=== PATIENT | male | born 1950 | race American Indian/Alaskan Native ===

== ENCOUNTER 2016-07-07 12:35 | Inpatient (IN) | payer MEDICARE, MEDICAID ==
[2016-07-07] MEDS ORDERED: Albuterol 0.5% Inhal Sol (5 mg/ ml) 20 ml IH STA ×2 (12:45→13:15)
--- NOTE | 2016-07-07 12:47 | ED PDOC ---
Arrival/HPI - General Chief Complaint: Respiratory Distress Time Seen by Provider: 07/07/16 12:37 Historian: Patient - History of Present Illness Narrative History of Present Illness (Text): 07/07/16 12:45 66 year old male sent from retirement with shortness of breath since last night after missing dialysis two days ago. Patient does not provide further history, states that he "just didn't want to go " for his last scheduled dialysis. Denies suicidal or homicidal ideation. Denies headache. Denies fever. Denies ACUTE visual symptoms. Denies chest pain. Denies chills or abodminal pain. NO ACUTE RASH or redness reported. PMD: Dr. Kapoor 07/07/16 17:02 Time/Duration: 24 hours Symptom Onset: Gradual Symptom Course: Unchanged Modifying Factors (Text): None Associated Symptoms (Text): None Past Medical History - Provider Review Nursing Documentation Reviewed: Yes - Infectious Disease Hx of Infectious Diseases: None - Tetanus Immunization Tetanus Immunization: Unknown - Cardiac Hx Cardiac Disorders: Yes Hx Hypertension: Yes Other/Comment: PVD - Pulmonary Hx Respiratory Disorders: Yes Hx Bronchitis: Yes Hx Pneumonia: Yes - Neurological Hx Paralysis: No - HEENT Hx HEENT Disorder: Yes Hx Blind: Yes (left eye blind) Hx Cataracts: Yes Hx Glaucoma: Yes Other/Comment: r eye blurrey vision after every dialysis - Renal Hx Dialysis: Yes Date of Last Dialysis Treatment: 07/03/16 Hx Renal Failure: Yes - Endocrine/Metabolic Hx Diabetes Mellitus Type 2: Yes - Hematological/Oncological Hx Blood Transfusions: No Hx Blood Transfusion Reaction: No - Integumentary Hx Dermatological Disorder: Yes Other/Comment: Bilateral dry feet, with right great toe amputation and right diabetic ulcer, dry skin ble and discolorations - Musculoskeletal/Rheumatological Hx Musculoskeletal Disorders: Yes - Gastrointestinal Hx Gastrointestinal Disorders: No - Genitourinary/Gynecological Hx Genitourinary Disorders: Yes - Psychiatric Hx Emotional Abuse: No Hx Physical Abuse: No Hx Substance Use: No - Surgical History Hx Amputation: Yes (r great toe) Other/Comment: r leg bypass [facility], r leg angio unssucessful 08/05/14, pancho, colonoscopy, right av fistula - Anesthesia Hx Anesthesia Reactions: No Hx Malignant Hyperthermia: No - Suicidal Assessment Feels Threatened In Home Enviroment: No Family/Social History - Physician Review Nursing Documentation Reviewed: Yes Family/Social History: Unknown Family HX Smoking Status: Never Smoked Hx Alcohol Use: No Hx Substance Use: No Hx Substance Use Treatment: No Allergies/Home Meds Allergies/Adverse Reactions: Allergies No Known Allergies Allergy (Verified 07/07/16 16:45) Home Medications: Home Meds Medication Instructions Recorded Confirmed Aspirin [Adult Low Dose Aspirin EC] 81 mg PO DAILY 07/23/15 06/02/16 Atorvastatin [Lipitor] 20 mg PO HS 07/23/15 07/07/16 Docusate Sodium [Col-Rite] 100 mg PO BID 07/23/15 07/07/16 Sevelamer [Renagel] 800 mg PO DAILY 02/18/16 07/07/16 Acetaminophen [Tylenol 325mg tab] 2 tab PO Q4 PRN 07/07/16 07/07/16 DiphenhydrAMINE [Benadryl] 25 mg PO DAILY PRN 07/07/16 07/07/16 Dorzolamide 2% [Trusopt] 1 drop OD BID 07/07/16 07/07/16 Insulin Human Regular [HumuLIN R] See Protocol SC BID 07/07/16 07/07/16 Lactulose [Generlac] 30 ml PO Q12 PRN 07/07/16 07/07/16 Metoprolol Succinate [Metoprolol 25 ng PO BID 07/07/16 07/07/16 Succinate] Pilocarpine HCl [Isopto Carpine] 1 drop OD QID 07/07/16 07/07/16 amLODIPine [Norvasc] 10 mg PO DAILY 07/07/16 07/07/16 oxyCODONE/Acetaminophen [Percocet 1 tab PO Q8 PRN 07/07/16 07/07/16 5/325 mg Tab] Review of Systems - Review of Systems Constitutional: Fatigue. absent: Fevers Eyes: Vision Changes (chronic history of glaucoma) Respiratory: SOB Cardiovascular: GUTIERREZ. absent: Chest Pain, Calf Pain Gastrointestinal: Appetite Changes. absent: Abdominal Pain Musculoskeletal: Myalgias Skin: Other (prior changes to toe/feet). absent: Rash Neurological: absent: Headache, Dizziness, Focal Weakness Psychiatric: absent: Depression Physical Exam - Physical Exam Narrative Physical Exam (Text): Head: Atraumatic. Normocephalic. Eyes: Visual acuity deficits at baseline. Glaucomatous changes. No pain with eye movements. ENT: Mucous membranes are moist and intact. No facial edema or erythema. Neck: Supple. No lympnadenopahty, positive JVD. Cardiovascular: Tachycardic with systolic murmur. Irregular rate and rhythm. Pulmonary/Chest: Tachypneic with rales bilaterally. Mild respiratory distress. Abdominal: Soft and nontender with no peritoneal signs. Back: No midline tenderness or erythema. Extremities: Diminished pulses, history of toe osteomyelitis. Skin: Skin is pale. No streaking. Psychiatric: Denies suicidal or homicidal ideation. 07/07/16 16:50 Vital Signs Reviewed: Yes Vital Signs Temp Pulse Resp BP Pulse Ox 07/07/16 15:18 95 H 19 124/57 L 98 07/07/16 15:01 98 H 24 117/67 94 L 07/07/16 14:22 99 H 22 136/70 94 L 07/07/16 13:05 20 89 L 07/07/16 12:49 98.2 F 100 H 22 137/94 H 88 L Temperature: Afebrile Pulse: Irregular Respiratory Rate: Tachypneic Appearance: Positive for: Uncomfortable Pain Distress: Moderate Mental Status: Positive for: Alert and Oriented X 3 Medical Decision Making ED Course and Treatment: Differential Diagnosis included but are not limited to: pulmonary edema, chf, pneumonia, renal failure, electrolyte abnormality Progress Notes: Dr. Rodriguez was contacted prior to patient's arrival by his PMD. Patient requested Dr. Juarez to be notified. Page was placed to Dr. Juarez at 12:45. Patient seen by me immediately upon arrival to ED. He states he has been feeling progressive sob. On exam, he is tachypneic and states that he missed dialysis recently because "I just didn't go". He is afebrile in ED. EKG emergenly obtained. EKG reveals atrial fibrillation with ventricular rate 104 BPM and hyperacute t waves that may be suggestive of hyperkalemia. High dose Albuterol was ordered and emergent consultation with renal was obtained to arrange dialysis to address potential hyperkalemia. BP is stable. Patient is awake and alert. Saturations on oxygen 96%. Chest X-ray: Bioinformatics Support Specialist: Dr. José Luis Meadows IMPRESSION: Right lower lobe infiltrate I suspect CXR also suggestive of possible pulmonary edema. Patient case discussed with Dr. Rodriguez and dialysis arranged for ED. Leukocytosis noted, patient afebrile. Due to exam consistent with fluid overload, did not aggressively hydrate. Blood cultures and iv antibiotics ordered as patient with hx of osteomyelitis although cannot exclude pneumonia. During dialysis, less tachypneic, he remains awake, alert. K elevated, although no hypotension and patient currently being dialyzed. CXR reading and leukoctyosis reviewed with PMD, will culture, consult ID. Will admit to telemetry as patient breathing more comfortably, yet still symptomatic during dialysis. Patient informed of treatment plan. 07/07/16 16:54 - Lab Interpretations Lab Results: 07/07/16 13:51 07/07/16 13:51 Lab Results 07/07/16 13:51: WBC 13.5 H D, RBC 2.83 L, Hgb 8.6 L, Hct 25.4 L, MCV 89.8, MCH 30.4, MCHC 33.9, RDW 14.5, Plt Count 136, MPV 9.2, Gran % 90.6 H, Lymph % (Auto ) 2.7 L, [place] % (Auto) 6.4 H, Eos % (Auto) 0.2 L, Baso % (Auto) 0.1, Gran # 12.20 H, Lymph # 0.4 L, [place] # 0.9 H, Eos # 0.0, Baso # 0.02, PT 11.0, INR 1.02 , APTT 18.7 L, pO2 60 H, VBG pH 7.23 L, VBG pCO2 46.0, VBG HCO3 19.3 L, VBG Total CO2 20.7 L, VBG O2 Sat (Calc) 92.8 H, VBG Base Excess -8.2 L, VBG Potassium 7.0 H*, Glucose 219 H, Lactate 2.4 H, FiO2 21.0, Sodium 137.0, Potassium 7.2 H* D, Chloride 109.0 H, Carbon Dioxide 18 L, Anion Gap 26 H, BUN 103 H, Creatinine 17.0 H*, Est GFR ( Amer) 3, Est GFR (Non-Af Amer) 3, Random Glucose 210 H, Calcium 9.1, Total Bilirubin 1.3, AST 20, ALT < 6 L, Alkaline Phosphatase 82, Lactate Dehydrogenase 638, Total Creatine Kinase 79, Troponin I 0.09 D, NT-Pro-B Natriuret Pep 52075 H, Total Protein 8.1, Albumin 4.3, Globulin 3.8, Albumin/Globulin Ratio 1.1, Venous Blood Potassium 7.0 H* 07/07/16 13:39: POC Glucose (mg/dL) 209 H - RAD Interpretation Radiology Orders: 07/07/16 12:46 CHEST PORTABLE [RAD] Stat Speech Pathology Assistant: Radiologist - EKG Interpretation EKG Interpretation (Text): 07/07/16 16:59 EKG at 12:45 atrial fibrillation with rapid ventricular response, left axis deviation, hyperacute t waves Interpreted by ED Physician: Yes Type: 12 lead EKG Comparison: Com.w/previous EKG - Medication Orders Current Medication Orders: Cefepime HCl (Maxipime 2gm) 100 mls @ 100 mls/hr IVPB STAT STA PRN Reason: Protocol Stop: 07/07/16 17:39 Discontinued Medications Albuterol Sulfate (Albuterol 0.5% Inhal Manju (5 Mg/ Ml) 20 Ml) 5 mg IH ONCE STA Stop: 07/07/16 12:46 Last Admin: 07/07/16 13:04 Dose: 5 MG Albuterol Sulfate (Albuterol 0.5% Inhal Manju (5 Mg/ Ml) 20 Ml) 5 mg IH ONCE STA Stop: 07/07/16 13:16 Last Admin: 07/07/16 13:23 Dose: 5 MG - Scribe Statement The provider has reviewed the documentation as recorded by the Alicia Regalado Provider Scribe Attestation: All medical record entries made by the Alicia were at my direction and personally dictated by me. I have reviewed the chart and agree that the record accurately reflects my personal performance of the history, physical exam, medical decision making, and the department course for this patient. I have also personally directed, reviewed, and agree with the discharge instructions and disposition. Disposition/Present on Arrival - Present on Arrival Any Indicators Present on Arrival: No History of DVT/PE: No History of Uncontrolled Diabetes: No Urinary Catheter: No History of Decub. Ulcer: No History Surgical Site Infection Following: Orthopedic Procedures - Disposition Have Diagnosis and Disposition been Completed?: Yes Diagnosis: Anemia, Pulmonary edema, ESRD (end stage renal disease) on dialysis, PVD ( peripheral vascular disease), Leukocytosis, Atrial fibrillation, Pneumonia Disposition Time: 14:30 Patient Plan: Admission, Telemetry Patient Problems: Current Active Problems Problem Status Diagnosed Atrial fibrillation Acute Leukocytosis Acute Pneumonia Acute Pulmonary edema Acute Sepsis Acute Anemia Chronic ESRD (end stage renal disease) on dialysis Chronic PVD (peripheral vascular disease) Chronic
--- NOTE | 2016-07-07 13:25 | RAD ---
HISTORY: sob COMPARISON: 06/06/2016 FINDINGS: LUNGS: There is an infiltrate in the right lower lobe consistent with pneumonia PLEURA: No significant pleural effusion identified, no pneumothorax apparent. CARDIOVASCULAR: Normal. OSSEOUS STRUCTURES: No significant abnormalities. VISUALIZED UPPER ABDOMEN: Normal. OTHER FINDINGS: None. IMPRESSION: Right lower lobe infiltrate
[2016-07-07 13:53] LABS: ADD MANUAL DIFF? NO
[2016-07-07 13:58] LABS: VENOUS BLOOD GAS BASE EXCESS -8.2 mmol/L (0.0-2.0); VENOUS BLOOD PH 7.23 (7.32-7.43)
[2016-07-07 13:59] LABS: BASO # 0.02 K/mm3 (0.0-2.0); BASO % 0.1 % (0.0-3.0); EOS % 0.2 % (1.5-5.0); GRAN % 90.6 % (50.0-68.0); HEMATOCRIT 25.4 % (42.0-52.0); LYMPH # 0.4 (1.2-3.4); LYMPH % 2.7 % (22.0-35.0); MEAN CELL VOLUME 89.8 fL (80.0-105.0); MEAN CORPUSCULAR HEMOGLOBIN 30.4 pg (25.0-35.0); MEAN CORPUSCULAR HGB CONC 33.9 g/dl (31.0-37.0); MEAN PLATELET VOLUME 9.2 fl (7.0-11.0); MONO # 0.9 (0.1-0.6); MONO % 6.4 % (1.0-6.0); PLATELET COUNT 136 10^3/uL (120.0-450.0); RED CELL DISTRIBUTION WIDTH 14.5 % (11.5-14.5); WHITE BLOOD COUNT 13.5 10^3/ul (4.5-11.0)
[2016-07-07 14:06] LABS: ALB/GLOB RATIO 1.1 (1.1-1.8); ALKALINE PHOSPHATASE 82 U/L (38-133); AST/SGOT 20 U/L (15-59); BILIRUBIN,TOTAL 1.3 mg/dL (0.2-1.3); BLOOD UREA NITROGEN 103 mg/dL (7-21); CALCIUM 9.1 mg/dL (8.4-10.5); CARBON DIOXIDE 18 mmol/L (21-33); CHLORIDE 102 mmol/L (98-107); GLUCOSE,RANDOM 210 mg/dL (70-110); SODIUM 139 mmol/L (132-148); TOTAL PROTEIN 8.1 g/dL (5.8-8.3)
[2016-07-07 14:12] LABS: GFR AFRICAN-AMERICAN 3
[2016-07-07 14:17] LABS: INR 1.02 (0.93-1.08); PARTIAL THROMBOPLASTIN TIME 18.7 Seconds (23.7-30.8)
[2016-07-07 14:18] LABS: ALT/SGPT < 6 U/L (7-56)
[2016-07-07 14:19] LABS: TROPONIN I 0.09 ng/mL
[2016-07-07 14:30] LABS: POTASSIUM 7.2 mmol/L (3.6-5.0)
[2016-07-07] MEDS ORDERED: Cefepime IV 2 gm in NS 100 ML IVPB STA (16:40)
[2016-07-07 17:48] LABS: VENOUS BLOOD GAS BASE EXCESS 1.2 mmol/L (0.0-2.0); VENOUS BLOOD PH 7.26 (7.32-7.43)
--- NOTE | 2016-07-07 17:51 | CON ---
DATE: 07/07/2016 REASON FOR CONSULTATION: Shortness of breath, hyperkalemia and abnormal EKG. HISTORY OF PRESENTING ILLNESS: A 66-year-old male sent from care home with complaints of shortnes s of breath since last night. The patient reports that he missed his dialysis on Sunday. He did not go for dialysis because of pain in his access arm. He reports that he was having shortness of br eath, nausea and vomiting last night. He also reports some chest tightness. In the Emergency Room, he is found to be tachypneic, in mild respiratory distress. He is also found to have an abnormal EKG with peaked T waves. His blood work shows a hemoglobin of 8.6, WBC count of 13.5 with 90% polys and his potassium was found to be 7.2. Consultation is requested for urgent dialysis. His BNP is found to be 87,200. PAST MEDICAL AND SURGICAL HISTORY: NIDDM, hypertension, ESRD, peripheral vascular disease, amputatio n, nonhealing ulcer, severe anemia, retinal hemorrhage and secondary hyperparathyroidism. FAMILY HISTORY: Noncontributory. SOCIAL HISTORY: Homeless, lives at the [facility], currently in care home. Ex-smoker, no alcohol use a nd no IV drug abuse. ALLERGIES: No known drug allergies. MEDICATIONS IN THE LONG TERM: Included pilocarpine, Trusopt, insulin, Colace, Benadryl, Lipitor, Tylenol, Percocet, Renagel and amlodipine and Toprol-XL 25. REVIEW OF SYSTEMS: As mentioned in history of presenting illness, the rest unremarkable. PHYSICAL EXAMINATION: GENERAL: Elderly male lying in bed in the Emergency Room in moderate respiratory distress. VITAL SIGNS: Blood pressure 136/70, heart rate 99, respiratory rate 24 and temperature 98. HEENT: Normocephalic, atraumatic with positive pallor. No icterus. NECK: Supple, no JVD. LUNGS: Bilateral rhonchi and bilateral basal rales. CARDIAC: S1, S2, regular rate and rhythm, no murmur and no rub. ABDOMEN: Obese, distended, soft, nontender with bowel sounds present. EXTREMITIES: Chronic stasis changes, dressing of both feet. LABORATORY DATA: WBC 13.5, hemoglobin 8.6, hematocrit 25 and platelets 136. Sodium 139, potassium 7 .2, chloride 102, CO2 18, BUN 103, creatinine 17, glucose 210, calcium 9.1, AST 20, ALT less than 6 a nd troponin 0.09. BNP 87,200. Albumin 4.3. VBG: pH 7.23, pO2 60 and pCO2 46. Chest x-ray: Right lower lobe infiltrate. EKG: Peaked T waves. ASSESSMENT AND PLAN: 1. Respiratory distress, shortness of breath and volume overload. 2. Severe life-threatening hyperkalemia. 3. Hypertension. 4. End-stage renal disease. 5. Non-insulin dependent diabetes mellitus. 6. Noncompliance. PLAN: 1. Urgent dialysis with a potassium ____ back, dialyzed for 3-1/2 hours. 2. Repeat potassium after dialysis. 3. May need dialysis again tomorrow. 4. Pneumonia? 5. Empiric antibiotics. Thank you for the courtesy of this consultation. We will follow this patient with you. Crystal Rodriguez MD cc: [phone] TT: 07/07/2016 17:50:57 Confirmation # [id number] Dictation # [id number] sn
--- NOTE | 2016-07-07 18:18 | CARD ---
APPROVED REPORT EKG Measurement Heart [id number] <Conclusion> Atrial fibrillation with rapid ventricular response Left axis deviation Nonspecific intraventricular block T wave abnormality, consider lateral ischemia or digitalis effect Abnormal ECG
[2016-07-07] MEDS ORDERED: Oxycodone/Acetaminophen 5/325 mg Tab PO PRN (22:25)
[2016-07-07 23:16] VITALS: BMI 26.8
[2016-07-07] MEDS ORDERED: Pneumococcal 23-Valent Vaccine IM ONE (23:16)
[2016-07-07] MEDS ORDERED: Influenza Vaccine 45 MCG/0.5 ml IM ONE (23:16)
[2016-07-07] MEDS: Dorzolamide 2% Opht Sol 10ml OD SCH (23:25)
[2016-07-08] MEDS: Meropenem 500 MG in Sodium Chloride 0.9% 100 ML IVPB SCH ×2 (00:22→21:51)
[2016-07-08] MEDS: Insulin Reg-MEDIUM-Coverage SC SCH ×4 (07:26→21:52)
[2016-07-08 07:27] LABS: MEAN CELL VOLUME 87.6 fL (80.0-105.0); MEAN CORPUSCULAR HGB CONC 34.3 g/dl (31.0-37.0); MEAN PLATELET VOLUME 9.2 fl (7.0-11.0); RED CELL DISTRIBUTION WIDTH 14.4 % (11.5-14.5)
[2016-07-08 07:40] LABS: ALB/GLOB RATIO 1.1 (1.1-1.8); BILIRUBIN,TOTAL 0.6 mg/dL (0.2-1.3); CALCIUM 8.6 mg/dL (8.4-10.5); POTASSIUM 5.1 mmol/L (3.6-5.0)
[2016-07-08 07:45] LABS: HEMATOCRIT 20.4 % (42.0-52.0)
--- NOTE | 2016-07-08 09:52 | PN ---
DATE: 07/08/2016 SUBJECTIVE: The patient is currently seen on telemetry. He appears to be comfortable. He is noted to be severely anemic. Hemoglobin today is down to 7.0. The patient only received 2 dialysis treatm ents this week, and he will receive an extra treatment today to make up further 3 treatments that he receives on a weekly basis. He will be transfused on dialysis. He denies any bleeding. The patient , otherwise, feels comfortable. He denies any shortness of breath. MEDICATIONS: Medication list reviewed. The patient is currently on eyedrops, Colace, doxycycline, E cotrin, insulin, Lipitor, meropenem, Norvasc, Percocet, Renagel, Toprol. OBJECTIVE: INTAKE AND OUTPUT: Intake 240, output not charted. VITAL SIGNS: Blood pressure 125/58, respiratory rate 20, pulse 82, temperature 98.9. HEENT: Shows him to be normocephalic, atraumatic. Conjunctivae are pale. Sclerae are nonicteric. The patient is blind in his left eye and legally blind in his right eye. NECK: Supple. No neck-vein distention. CHEST: Clear to auscultation and percussion. Slight decreased breath sounds at the right base. CARDIOVASCULAR: Shows a regular rate and rhythm with a soft systolic murmur, left lower sternal bord er. Mitral regurgitation. No S3, no S4, no rub. ABDOMEN: Soft. Bowel sounds normal. No rebound, no guarding, no masses. EXTREMITIES: Right upper extremity AV fistula, positive thrill, positive bruit. No lower extremity edema. LABORATORY DATA AND IMAGING: Chest x-ray from admission shows a right lower lobe infiltrate consiste nt with pneumonia. LABORATORY DATA: CBC: White blood cell count down to 6.0 from 13.5. Hemoglobin is down to 7.0 from 8.6. Platelet count is low at 112,000. Chemistries today show a potassium of 5.1 down from 7.2 yes terday[address] Electrolytes otherwise are normal. BUN 89 with a creatinine of 14.6. Albumin level is 3.7 with a calcium of 8.6. Phosphorus level is pending. Microbiology: No specimens available for comme nt. ASSESSMENT: 1. End-stage renal disease. The patient needs to continue 4-[id number]-week dialysis. I will give him an extra dialysis treatment today and transfuse 2 units of packed red blood cells. 2. History of severe peripheral vascular disease status post critical limb ischemia, right lower ext remity. Status post recent angioplasty, status post amputation of his right second toe. 3. Status post life-threatening hyperkalemia. Potassium level is acceptable at 5.1. The patient wi ll receive an extra dialysis treatment today. 4. History of non-insulin dependent diabetes mellitus of multiple complications. The patient is cur rently on sliding scale insulin therapy. 5. History of hypertension. Blood pressure is presently controlled on present medication. 6. History of anemia. No evidence for any bleeding. The patient will receive 2 units of packed red blood cells today on dialysis. 7. History of secondary hyperparathyroidism. Calcium level was normal. We will check a phosphorus level with today's dialysis. The patient remains on binder therapy and a renal diet. 8. History of hyperlipidemia. The patient will continue statin therapy. 9. History of transient ischemic attack appears to be stable. 10. The patient is blind in his left eye and legally blind in his right eye. This appears to be sta ble. The patient follows closely with ophthalmology. 11. Chest x-ray reveals a right lower lobe infiltrate, likely consistent with pneumonia. The patien t continues on antibiotic therapy. PLAN: 1. Continue to monitor the patient on telemetry in light of his hyperkalemia. 2. Continue antibiotic therapy in light of his newly diagnosed right lower lobe pneumonia. 3. Transfuse the patient 2 units of packed red blood cells today with an extra dialysis treatment. This will give him 3 dialysis treatments for the week. We will use a maximum blood flow rate of 300, as anything greater than 300 causes him to have visual disturbances post-dialysis. 4. Continue sliding scale insulin. 5. Continue renal diet and binder therapy. Case discussed with the hemodialysis staff and the staff on telemetry. Alberto Juarez MD cc: [phone] TT: 07/08/2016 09:51:33 Confirmation # [id number] Dictation # [id number] [place]
[2016-07-08] MEDS ORDERED: Pilocarpine 1% Opht (15ml) OD SCH (10:00)
--- NOTE | 2016-07-08 11:22 | HP ---
HISTORY OF PRESENT ILLNESS: The patient presented to the Emergency Department with shortness of breath last night. He has ESRD. He missed dialysis 2 days ago. He is noncompliant. He was found to be hyperkalemic, severe anemia with hemoglobin of 7, thrombocytopenia, also fluid overload. Chest x-ray showed bilateral pulmonary edema. He has diabetes mellitus, noninsulin dependent, uncontrolled. He is blind in left eye. Denies any blurry vision. Chest x-ray also showed right lower lobe infiltrate. He was dialyzed emergently yesterday. White count was also elevated to 13,000. PAST MEDICAL HISTORY: 1. End-stage renal disease, on dialysis. 2. Hypertension. 3. Peripheral vascular disease. 4. Recurring pneumonias. 5. Blind in left eye. 6. Diabetes mellitus type 2. PAST SURGICAL HISTORY: Amputation of the great right toe, bypass surgery, right leg. FAMILY HISTORY: No positive history in mother or father. SMOKING HISTORY: Never smoked. No history of alcohol abuse. SOCIAL HISTORY: Lives at home. ALLERGIES: No known drug allergies. HOME MEDICATIONS: Aspirin 81 mg daily, Lipitor 20 mg daily, Colace 100 mg p.o. b.i.d., Tylenol 650 q. 4 hours p.r.n., regular insulin, lactulose p.r.n., amlodipine 10 mg daily, oxycodone p.r.n. REVIEW OF SYSTEMS: As per HPI. The rest of the 12-point review of systems reviewed and negative. PHYSICAL EXAMINATION: VITAL SIGNS: Temperature 98.2. Heart rate is 95 per minute. Respiratory rate is 19 per minute. Blood pressure 136/70. Pulse ox is 89, on oxygen by nasal cannula. HEENT: Normal. NECK: Supple. No lymphadenopathy, no JVD. CARDIOVASCULAR: Tachycardia plus. HEART: S1, S2 normal. No murmur, no gallop. CHEST: Bilateral crepitations at the bases. Tachypnea present. ABDOMEN: Soft, nontender. No hepatosplenomegaly. EXTREMITIES: No edema. SKIN: Dry. No petechia, no rash. SPINE: Normal. LYMPHADENOPATHY: None. LABORATORY DATA: White count 13.5, hemoglobin 8.6, hematocrit 25.4, platelet count 136. Sodium 139, potassium 3.2. Potassium 7.2, creatinine 17, glucose 210. Repeat CBC: White count 6, hemoglobin 7, platelet count 112. ASSESSMENT: 1. Severe anemia. 2. Thrombocytopenia. 3. Leukocytosis. 4. End-stage renal disease on hemodialysis, noncompliant. 5. Hyperkalemia. 6. Right lower lobe pneumonia. 7. Diabetes mellitus type 2. PLAN: Two units of blood transfusion. He was hemodialyzed yesterday, possible hemodialysis today too. Nephrology consult, Dr. Rodriguez, requested. Continue Norvasc 10 mg daily for hypertension. Beta-gabe 25 mg p.o. b.i.d., metoprolol to be given. Pain controlled with Percocet 1 tablet q. 4 hours p.r.n. Lipitor 20 mg daily, aspirin 21 mg daily. IV antibiotic, meropenem 500 mg q. 12 hours, doxycycline 100 mg q. 12 hours. Renagel 800 mg daily, insulin sliding scale, glucose fingerstick check q. a.c. and at bedtime. We will continue to monitor CBC, hemoglobin, and hematocrit. ID consultation, Dr. Reyes, requested. Wound care consultation. Nursing referral for palliative care, regular diet. Jocelin Holman MD cc: [id number] TT: 07/08/2016 11:22:33 jn MTDD
[2016-07-08] MEDS: Brimonidine 0.15% 50 DROP/5 ML BOTTLE OD SCH ×3 (12:53→18:56)
[2016-07-08] MEDS: Metoprolol Succinate 25 mg XL Tab PO SCH ×2 (12:53→18:59)
[2016-07-08] MEDS: Dorzolamide 2%/Timolol 0.5% 100 DROP/10 ML BOTTLE OD SCH ×2 (12:54→18:56)
[2016-07-08] MEDS: Pilocarpine 2% Opht (15ml) OD SCH ×4 (12:55→21:52)
[2016-07-08 13:22] LABS: MAGNESIUM 2.3 mg/dL (1.7-2.2); PHOSPHOROUS 4.3 mg/dL (2.5-4.5)
[2016-07-08] MEDS: Dorzolamide 2% Opht Sol 10ml OD SCH (13:22)
--- NOTE | 2016-07-08 15:25 | CP.PCM.CON ---
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 He had missed dialysis about 2 days ago and that was when his symptoms started. He denies fever or chills, no nausea or vomiting, no chest pain, no abdominal pain, no headache or dizziness, no dysuria, no diarrhea. In the ED, CXR showed right lower lobe infiltrate. Infectious Diseases consult is requested to further evaluate and manage. Review of Systems - Review of Systems All systems: reviewed and no additional remarkable complaints except (as per HPI ) Past Patient History - Infectious Disease Hx of Infectious Diseases: None - Tetanus Immunizations Tetanus Immunization: Unknown - Past Medical History & Family History Past Medical History?: Yes Past Family History: Reviewed and not pertinent - Past Social History Smoking Status: Former Smoker Alcohol: None Drugs: Denies Home Situation {Lives}: With Family - CARDIAC Hx Cardiac Disorders: Yes Hx Hypertension: Yes Other/Comment: PVD - PULMONARY Hx Respiratory Disorders: Yes Hx Bronchitis: Yes Hx Pneumonia: Yes - NEUROLOGICAL Hx Neurological Disorder: Yes Hx Dizziness: Yes Hx Transient Ischemic Attacks (TIA): Yes - HEENT Hx HEENT Problems: Yes Hx Blind: Yes (left eye blind) Hx Cataracts: Yes Hx Glaucoma: Yes Other/Comment: r eye blurrey vision after every dialysis - RENAL Hx Chronic Kidney Disease: Yes (RIGHT AV SHUNT-STATES HE GOES TO [facility] FOR HD) Hx Dialysis: Yes Hx Renal Failure: Yes - ENDOCRINE/METABOLIC Hx Endocrine Disorders: Yes Hx Diabetes Mellitus Type 2: Yes - HEMATOLOGICAL/ONCOLOGICAL Hx Blood Disorders: No - INTEGUMENTARY Hx Dermatological Problems: Yes Other/Comment: Bilateral dry feet, with right great toe amputation and right diabetic ulcer, dry skin ble and discolorations - MUSCULOSKELETAL/RHEUMATOLOGICAL Hx Musculoskeletal Disorders: Yes Hx Falls: Yes Hx Unsteady Gait: Yes (WALKER) - GASTROINTESTINAL Hx Gastrointestinal Disorders: No - GENITOURINARY/GYNECOLOGICAL Hx Genitourinary Disorders: Yes - PSYCHIATRIC Hx Emotional Abuse: No Hx Physical Abuse: No Hx Substance Use: No - SURGICAL HISTORY Hx Surgeries: Yes (RIGHT HEEL DEBRIDEMENT.) Hx Amputation: Yes (r great toe) Other/Comment: r leg bypass [facility], r leg angio unssucessful 08/05/14, pancho, colonoscopy, right av fistula - ANESTHESIA Hx Anesthesia Reactions: No Hx Malignant Hyperthermia: No Meds Allergies/Adverse Reactions: Allergies Allergy/AdvReac Type Severity Reaction Status Date / Time No Known Allergies Allergy Verified 07/07/16 16:45 - Medications Medications: Current Medications Amlodipine Besylate (Norvasc) 10 mg PO DAILY [facility] Aspirin (Ecotrin) 81 mg PO DAILY [facility] Atorvastatin Calcium (Lipitor) 20 mg PO HS [facility] Last Admin: 07/07/16 23:05 Dose: 20 mg Brimonidine Tartrate (Alphagan P 0.15% Opht) 1 drop OD TID [facility] Docusate Sodium (Colace) 100 mg PO BID [facility] Last Admin: 07/07/16 23:06 Dose: Not Given Dorzolamide HCl (Trusopt) 0 ml OD BID [facility] Last Admin: 07/07/16 23:25 Dose: 1 drop Insulin Human Regular (Humulin R Med) 0 units SC ACHS [facility] PRN Reason: Protocol Metoprolol Succinate (Toprol Xl) 25 mg PO BID [facility] Oxycodone/Acetaminophen (Percocet 5/325 Mg Tab) 1 tab PO Q4 PRN PRN Reason: Pain, severe (8-10) Stop: 07/11/16 00:01 Pilocarpine HCl (Isopto Carpine 2% Opht Soln) 0 ml OD QID [facility] Sevelamer HCl (Renagel) 800 mg PO DAILY [facility] Physical Exam - Constitutional Appears: Non-toxic, No Acute Distress - Head Exam Head Exam: NORMAL INSPECTION - ENT Exam ENT Exam: Mucous Membranes Moist - Neck Exam Neck exam: Negative for: Lymphadenopathy, Meningismus - Respiratory Exam Respiratory Exam: Decreased Breath Sounds (on the right base) - Cardiovascular Exam Cardiovascular Exam: +S1, +S2 - GI/Abdominal Exam GI & Abdominal Exam: Soft. absent: Tenderness Results - Vital Signs Recent Vital Signs: Last Vital Signs Temp 97.6 F 07/07/16 22:50 Pulse 95 H 07/07/16 22:50 Resp 19 07/07/16 22:50 BP 119/66 07/07/16 22:50 Pulse Ox 98 07/07/16 18:22 - Labs Result Diagrams: 07/08/16 06:45 07/08/16 06:45 Labs: Laboratory Results - last 24 hr 07/07/16 07/07/16 17:31 21:37 pO2 180 H VBG pH 7.26 L VBG pCO2 67.0 H* VBG HCO3 30.1 H VBG Total CO2 32.2 H VBG O2 Sat (Calc) 99.3 H VBG Base Excess 1.2 VBG Potassium 1.9 L* Sodium 138.0 Chloride 98.0 Glucose 105 Lactate 1.1 FiO2 21.0 POC Glucose (mg/dL) 113 H Venous Blood Potassium 1.9 L* Assessment & Plan - Assessment and Plan (Free Text) Plan: Assessment Systemic Inflammatory Response Syndrome, consider sepsis secondary to right lower lobe healthcare-associated pneumonia with possible gram positive cocci and / or gram negative bacilli in a patient with probable acute heart failure with pulmonary congestion history of 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
[2016-07-09] MEDS: Insulin Reg-MEDIUM-Coverage SC SCH ×4 (08:39→22:03)
--- NOTE | 2016-07-09 10:24 | PN ---
DATE: 07/09/2016 The patient is in bed in no acute distress, nontoxic. The patient seen earlier today. PHYSICAL EXAMINATION: VITAL SIGNS: Temperature is 98, blood pressure is 130/60, respiratory rate of 16. HEENT: Unremarkable. NECK: Supple. LUNGS: Have decreased breath sounds. HEART: Normal S1, S2. ABDOMEN: Soft, nontender. LABORATORY DATA: Reveals a white count of 6, hemoglobin of 7, platelets of 112. Coagulation is note d. The patient's creatinine is 14, procalcitonin of 5.45. Microbiology reveals the blood cultures a re no growth. Review of the orders reveals the patient to be on doxycycline IV, meropenem. ASSESSMENT AND PLAN: This is a 66-year-old male with sepsis secondary to right lower lobe healthcare -associated pneumonia, possible gram-positive cocci, possible gram-negative alisa with acute congestive heart failure and pulmonary congestion and end-stage renal disease on hemodialysis with a history of right second toe gangrene and osteomyelitis and peripheral arterial disease and atrial fibrillation, diabetes with diabetic neuropathy and hypertensive and currently on doxycycline and meropenem. Bloo d cultures are negative so far at 24 hours. We will continue the present course pending further work up results and will follow closely with you. Tay Reyes MD cc: [id number] TT: 07/09/2016 10:23:53 Confirmation # [id number] Dictation # [id number] mn
[2016-07-09] MEDS: Metoprolol Succinate 25 mg XL Tab PO SCH ×2 (11:18→18:20)
[2016-07-09] MEDS: Meropenem 500 MG in Sodium Chloride 0.9% 100 ML IVPB SCH ×2 (11:20→22:04)
[2016-07-09] MEDS: Dorzolamide 2%/Timolol 0.5% 100 DROP/10 ML BOTTLE OD SCH ×2 (11:32→18:20)
[2016-07-09] MEDS: Brimonidine 0.15% 50 DROP/5 ML BOTTLE OD SCH ×3 (11:32→18:20)
[2016-07-09] MEDS: Pilocarpine 2% Opht (15ml) OD SCH ×4 (11:33→22:04)
--- NOTE | 2016-07-10 00:43 | CP.PCM.PN ---
Subjective - Date & Time of Evaluation Date of Evaluation: 07/09/16 Time of Evaluation: 11:00 - Subjective Subjective: 07/09/2016 HISTORY OF PRESENT ILLNESS: The patient presented to the Emergency Department with shortness of breath last night. He has ESRD. He missed dialysis 2 days ago. He is noncompliant. He was found to be hyperkalemic, severe anemia with hemoglobin of 7, thrombocytopenia, also fluid overload. Chest x-ray showed bilateral pulmonary edema. He has diabetes mellitus, noninsulin dependent, uncontrolled. He is blind in left eye. Denies any blurry vision. Chest x-ray also showed right lower lobe infiltrate. He was dialyzed emergently . White count was also elevated to 13,000. S/P 2 units of PRBC. PAST MEDICAL HISTORY: 1. End-stage renal disease, on dialysis. 2. Hypertension. 3. Peripheral vascular disease. 4. Recurring pneumonias. 5. Blind in left eye. 6. Diabetes mellitus type 2. PAST SURGICAL HISTORY: Amputation of the great right toe, bypass surgery, right leg. FAMILY HISTORY: No positive history in mother or father. SMOKING HISTORY: Never smoked. No history of alcohol abuse. SOCIAL HISTORY: Lives at home. ALLERGIES: No known drug allergies. HOME MEDICATIONS: Aspirin 81 mg daily, Lipitor 20 mg daily, Colace 100 mg p.o. b.i.d., Tylenol 650 q. 4 hours p.r.n., regular insulin, lactulose p.r.n., amlodipine 10 mg daily, oxycodone p.r.n. REVIEW OF SYSTEMS: As per HPI. The rest of the 12-point review of systems reviewed and negative. PHYSICAL EXAMINATION: VITAL SIGNS: reviewed. HEENT: Normal. NECK: Supple. No lymphadenopathy, no JVD. CARDIOVASCULAR: Tachycardia plus. HEART: S1, S2 normal. No murmur, no gallop. CHEST: Bilateral crepitations at the bases. Tachypnea present. ABDOMEN: Soft, nontender. No hepatosplenomegaly. EXTREMITIES: No edema. SKIN: Dry. No petechia, no rash. SPINE: Normal. LYMPHADENOPATHY: None. LABORATORY DATA: reviewed. ASSESSMENT: 1. Severe anemia. 2. Thrombocytopenia. 3. Leukocytosis. 4. End-stage renal disease on hemodialysis, noncompliant. 5. Hyperkalemia. 6. Right lower lobe pneumonia. 7. Diabetes mellitus type 2. PLAN: s/p units of blood transfusion. On hemodialysis . Nephrology consult, Dr. Rodriguez, requested. Continue Norvasc 10 mg daily for hypertension. Beta- gabe 25 mg p.o. b.i.d., metoprolol to be given. Pain controlled with Percocet 1 tablet q. 4 hours p.r.n. Lipitor 20 mg daily, aspirin 21 mg daily. IV antibiotic, meropenem 500 mg q. 12 hours, doxycycline 100 mg q. 12 hours. Renagel 800 mg daily, insulin sliding scale, glucose fingerstick check q. a.c. and at bedtime. We will continue to monitor CBC, hemoglobin, and hematocrit. On IV antibiotics , Dr. Hernandez following, note reviewed. Jocelin Holman MD Objective - Vital Signs/Intake and Output Vital Signs (last 24 hours): Temp Pulse Resp BP Pulse Ox 99.1 F 69 21 137/68 95 07/09/16 12:00 07/09/16 22:00 07/09/16 12:00 07/09/16 12:00 07/09/16 06:00 - Medications Medications: Current Medications Amlodipine Besylate (Norvasc) 10 mg PO DAILY [facility] Last Admin: 07/09/16 11:21 Dose: 10 mg Aspirin (Ecotrin) 81 mg PO DAILY [facility] Last Admin: 07/09/16 11:18 Dose: 81 mg Atorvastatin Calcium (Lipitor) 20 mg PO HS [facility] Last Admin: 07/09/16 22:03 Dose: 20 mg Brimonidine Tartrate (Alphagan P 0.15% Opht) 1 drop OD TID [facility] Last Admin: 07/09/16 18:20 Dose: 1 drop Docusate Sodium (Colace) 100 mg PO BID [facility] Last Admin: 07/09/16 18:20 Dose: Not Given Dorzolamide/Timolol (Cosopt 2%-0.5% Opht) 1 drop OD BID [facility] Last Admin: 07/09/16 18:20 Dose: 1 drop Meropenem 500 mg/ Sodium (Chloride) 100 mls @ 100 mls/hr IVPB Q12 [facility] PRN Reason: Protocol Stop: 07/14/16 23:46 Last Admin: 07/09/16 22:04 Dose: 100 mls/hr Doxycycline Hyclate 100 mg/ (Sodium Chloride) 100 mls @ 100 mls/hr IVPB Q12 [facility] PRN Reason: Protocol Stop: 07/14/16 23:46 Last Admin: 07/09/16 22:04 Dose: 100 mls/hr Insulin Human Regular (Humulin R Med) 0 units SC ACHS [facility] PRN Reason: Protocol Last Admin: 07/09/16 22:03 Dose: Not Given Metoprolol Succinate (Toprol Xl) 25 mg PO BID [facility] Last Admin: 07/09/16 18:20 Dose: 25 mg Oxycodone/Acetaminophen (Percocet 5/325 Mg Tab) 1 tab PO Q4 PRN PRN Reason: Pain, severe (8-10) Stop: 07/11/16 00:01 Pilocarpine HCl (Isopto Carpine 2% Opht Soln) 0 ml OD QID [facility] Last Admin: 07/09/16 22:04 Dose: 1 drop Sevelamer HCl (Renagel) 800 mg PO DAILY [facility] Last Admin: 07/09/16 11:18 Dose: 800 mg - Labs Labs: 07/08/16 06:45 07/08/16 06:45 PT 11.0 Seconds (9.9-11.8) 07/07/16 13:51 INR 1.02 (0.93-1.08) 07/07/16 13:51 APTT 18.7 Seconds (23.7-30.8) L 07/07/16 13:51
[2016-07-10 05:42] VITALS: O2SAT 94
[2016-07-10 07:55] LABS: ADD MANUAL DIFF? NO
[2016-07-10 08:04] LABS: BASO # 0.04 K/mm3 (0.0-2.0); BASO % 0.6 % (0.0-3.0); EOS # 0.6 (0.0-0.7); EOS % 10.2 % (1.5-5.0); GRAN # 4.18 (1.4-6.5); GRAN % 67.8 % (50.0-68.0); HEMATOCRIT 25.8 % (42.0-52.0); LYMPH # 0.9 (1.2-3.4); LYMPH % 14.9 % (22.0-35.0); MEAN CELL VOLUME 85.4 fL (80.0-105.0); MEAN CORPUSCULAR HEMOGLOBIN 29.5 pg (25.0-35.0); MEAN CORPUSCULAR HGB CONC 34.5 g/dl (31.0-37.0); MEAN PLATELET VOLUME 10.1 fl (7.0-11.0); MONO # 0.4 (0.1-0.6); MONO % 6.5 % (1.0-6.0); PLATELET COUNT 125 10^3/uL (120.0-450.0); RED CELL DISTRIBUTION WIDTH 15.2 % (11.5-14.5); WHITE BLOOD COUNT 6.2 10^3/ul (4.5-11.0)
[2016-07-10] MEDS: Insulin Reg-MEDIUM-Coverage SC SCH ×3 (08:24→20:32)
[2016-07-10 08:27] LABS: CALCIUM 8.8 mg/dL (8.4-10.5)
--- NOTE | 2016-07-10 08:34 | DS ---
This is a 66-year-old male who had come to the hospital because of acute shortness of breath secondar y to missing dialysis. The patient was emergently dialyzed. He was having acute anemia so he was gi narcisa 2 units of transfusions on dialysis. The patient is feeling symptomatically better. The patient had blood cultures that were negative. The plan was to discharge the patient back to his rehab [facility]. PHYSICAL EXAMINATION: VITAL SIGNS: Temperature is 98.2, pulse of 95, blood pressure 108/49, respirations 18, O2 saturation 94%. GENERAL: The patient comfortable, in no acute distress. HEENT: Anicteric sclerae. Moist mucosa. NECK: No JVD or adenopathy. CARDIAC: S1/S2. No murmurs. No rubs. Regular. RESPIRATORY: Clear to auscultation bilaterally. No wheezes, rales, or rhonchi. Good air entry. ABDOMEN: Bowel sounds are positive, soft, nontender, and nondistended. EXTREMITIES: No edema. Has 1+ pulses. ASSESSMENT: 1. Acute anemia, multifactorial, status post transfusion. 2. Thrombocytopenia. 3. End-stage renal disease, on hemodialysis. 4. Noncompliance. 5. Hyperkalemia. 6. Diabetes, type 2. 7. Dyslipidemia. PLAN: The patient is currently comfortable. He is going to continue his dialysis treatment. He is being followed by nephrology. He is being followed by Dr. Iniguez from podiatry. He is on Lipitor f or dyslipidemia. He is receiving amlodipine for hypertension. He is on Percocet for pain. Will spe ak to the other consultants. If he is cleared by ID, will discharge the patient back to [facility] for continued rehab. Chris Kapoor MD cc: [id number] TT: 07/10/2016 08:34:09 giovani
--- NOTE | 2016-07-10 08:53 | CP.PCM.PN ---
Subjective - Date & Time of Evaluation Date of Evaluation: 07/10/16 Time of Evaluation: 08:00 - Subjective Subjective: 66 yo diabetic male patient 1 month s/p Right 2nd digit amputation was seen at bedside this morning for with attending Dr. Iniguez. Pt seen resting comfortably in bed at the time of visit, appears AAOx3 and in NAD. Dressing to right lower extremity was clean dry but not intact with half of dressing falling apart. Patient denies of any pain to Right foot. Patient denies of any N /V/F/C or SOB today. Objective - Vital Signs/Intake and Output Vital Signs (last 24 hours): Temp Pulse Resp BP Pulse Ox 98.2 F 95 H 18 108/49 L 94 L 07/10/16 05:41 07/10/16 05:41 07/10/16 05:41 07/10/16 05:41 07/10/16 05:41 Intake and Output: 07/10/16 07/10/16 06:59 18:59 Intake Total 2220 Balance 2220 - Medications Medications: Current Medications Amlodipine Besylate (Norvasc) 10 mg PO DAILY [facility] Last Admin: 07/09/16 11:21 Dose: 10 mg Aspirin (Ecotrin) 81 mg PO DAILY [facility] Last Admin: 07/09/16 11:18 Dose: 81 mg Atorvastatin Calcium (Lipitor) 20 mg PO HS [facility] Last Admin: 07/09/16 22:03 Dose: 20 mg Brimonidine Tartrate (Alphagan P 0.15% Opht) 1 drop OD TID [facility] Last Admin: 07/09/16 18:20 Dose: 1 drop Docusate Sodium (Colace) 100 mg PO BID [facility] Last Admin: 07/09/16 18:20 Dose: Not Given Dorzolamide/Timolol (Cosopt 2%-0.5% Opht) 1 drop OD BID [facility] Last Admin: 07/09/16 18:20 Dose: 1 drop Meropenem 500 mg/ Sodium (Chloride) 100 mls @ 100 mls/hr IVPB Q12 [facility] PRN Reason: Protocol Stop: 07/14/16 23:46 Last Admin: 07/09/16 22:04 Dose: 100 mls/hr Doxycycline Hyclate 100 mg/ (Sodium Chloride) 100 mls @ 100 mls/hr IVPB Q12 [facility] PRN Reason: Protocol Stop: 07/14/16 23:46 Last Admin: 07/09/16 22:04 Dose: 100 mls/hr Insulin Human Regular (Humulin R Med) 0 units SC ACHS [facility] PRN Reason: Protocol Last Admin: 07/10/16 08:24 Dose: Not Given Metoprolol Succinate (Toprol Xl) 25 mg PO BID [facility] Last Admin: 07/09/16 18:20 Dose: 25 mg Oxycodone/Acetaminophen (Percocet 5/325 Mg Tab) 1 tab PO Q4 PRN PRN Reason: Pain, severe (8-10) Stop: 07/11/16 00:01 Pilocarpine HCl (Isopto Carpine 2% Opht Soln) 0 ml OD QID [facility] Last Admin: 07/09/16 22:04 Dose: 1 drop Sevelamer HCl (Renagel) 800 mg PO DAILY [facility] Last Admin: 07/09/16 11:18 Dose: 800 mg - Labs Labs: 07/10/16 07:40 07/10/16 07:40 PT 11.0 Seconds (9.9-11.8) 07/07/16 13:51 INR 1.02 (0.93-1.08) 07/07/16 13:51 APTT 18.7 Seconds (23.7-30.8) L 07/07/16 13:51 - Constitutional Appears: Well, Non-toxic, No Acute Distress - Extremities Exam Additional comments: Bilateral lower extremities exam DERM: Right: Open wound noted to dorso-medial aspect of the right hallux measuring 2cmx 1cmx 0.2cm with granular base. Mild sero-sanguinous drainage is noted. Mild erythema is noted around the ulceration. Left: No open wound noted. Xerosis noted. Elongated, dystrophic toenails were noted to all toenails x5. No erythema noted. No drainage is noted. VASC- DP/PT pulses are non-palpable bilateral, no pedal edema noted, feet are warm to touch bilateral NEURO- protective pedal sensation diminished bl ORTHO- tenderness to palpation of dorsum of right foot as well as to palp of right 2nd digit - Neurological Exam Neurological Exam: Alert, Awake, Oriented x3 - Psychiatric Exam Psychiatric exam: Normal Affect, Normal Mood - Skin Skin Exam: Normal Color, Warm Assessment and Plan - Assessment and Plan (Free Text) Assessment: 66 yo diabetic male patient 1 month s/p Right 2nd digit amputation presenting with open wound to surgical site Plan: Pt seen and evaluated at the bedside with attending Dr. Iniguez Labs and vitals reviewed Dressing to right lower extremity was changed using Xeroform, DSD, ABD Elongated, dystrophic toenails were sharply debrided with a large nail nipper up to level of normal length without any incident. Weightbearing status to be partial weightbearing to heel right foot Podiatry will continue to follow while he remains in house.
[2016-07-10] MEDS: Pilocarpine 2% Opht (15ml) OD SCH ×3 (09:51→20:32)
[2016-07-10] MEDS: Brimonidine 0.15% 50 DROP/5 ML BOTTLE OD SCH ×3 (09:51→20:30)
[2016-07-10] MEDS: Dorzolamide 2%/Timolol 0.5% 100 DROP/10 ML BOTTLE OD SCH ×2 (09:52→20:31)
[2016-07-10] MEDS: Meropenem 500 MG in Sodium Chloride 0.9% 100 ML IVPB SCH (09:52)
[2016-07-10] MEDS: Metoprolol Succinate 25 mg XL Tab PO SCH ×2 (09:55→20:34)
[2016-07-10 13:25] VITALS: RESP 20; TEMP 97.5
[2016-07-10 13:48] LABS: MAGNESIUM 2.2 mg/dL (1.7-2.2); PHOSPHOROUS 3.8 mg/dL (2.5-4.5)
--- NOTE | 2016-07-10 16:06 | CP.PCM.PN ---
Subjective - Date & Time of Evaluation Date of Evaluation: 07/10/16 Time of Evaluation: 09:10 - Subjective Subjective: Comfortable in bed, not in distress, no fevers overnight, breathing much better. Objective - Vital Signs/Intake and Output Vital Signs (last 24 hours): Temp Pulse Resp BP Pulse Ox 97.5 F L 73 20 124/65 94 L 07/10/16 12:00 07/10/16 12:00 07/10/16 12:00 07/10/16 12:00 07/10/16 05:41 Intake and Output: 07/10/16 07/10/16 06:59 18:59 Intake Total 2220 Balance 2220 - Medications Medications: Current Medications Amlodipine Besylate (Norvasc) 10 mg PO DAILY [facility] Last Admin: 07/10/16 09:53 Dose: Not Given Aspirin (Ecotrin) 81 mg PO DAILY [facility] Last Admin: 07/10/16 10:11 Dose: Not Given Atorvastatin Calcium (Lipitor) 20 mg PO HS [facility] Last Admin: 07/09/16 22:03 Dose: 20 mg Brimonidine Tartrate (Alphagan P 0.15% Opht) 1 drop OD TID [facility] Last Admin: 07/10/16 14:01 Dose: Not Given Docusate Sodium (Colace) 100 mg PO BID [facility] Last Admin: 07/10/16 09:53 Dose: Not Given Dorzolamide/Timolol (Cosopt 2%-0.5% Opht) 1 drop OD BID [facility] Last Admin: 07/10/16 09:52 Dose: 1 drop Meropenem 500 mg/ Sodium (Chloride) 100 mls @ 100 mls/hr IVPB Q12 [facility] PRN Reason: Protocol Stop: 07/14/16 23:46 Last Admin: 07/10/16 09:52 Dose: 100 mls/hr Doxycycline Hyclate 100 mg/ (Sodium Chloride) 100 mls @ 100 mls/hr IVPB Q12 [facility] PRN Reason: Protocol Stop: 07/14/16 23:46 Last Admin: 07/10/16 11:39 Dose: 100 mls/hr Insulin Human Regular (Humulin R Med) 0 units SC ACHS [facility] PRN Reason: Protocol Last Admin: 07/10/16 12:44 Dose: 1 units Metoprolol Succinate (Toprol Xl) 25 mg PO BID [facility] Last Admin: 07/10/16 09:55 Dose: Not Given Oxycodone/Acetaminophen (Percocet 5/325 Mg Tab) 1 tab PO Q4 PRN PRN Reason: Pain, severe (8-10) Stop: 07/11/16 00:01 Pilocarpine HCl (Isopto Carpine 2% Opht Soln) 0 ml OD QID [facility] Last Admin: 07/10/16 14:01 Dose: Not Given Sevelamer HCl (Renagel) 800 mg PO DAILY [facility] Last Admin: 07/10/16 09:55 Dose: Not Given - Labs Labs: 07/10/16 07:40 07/10/16 07:40 PT 11.0 Seconds (9.9-11.8) 07/07/16 13:51 INR 1.02 (0.93-1.08) 07/07/16 13:51 APTT 18.7 Seconds (23.7-30.8) L 07/07/16 13:51 - Constitutional Appears: Non-toxic, No Acute Distress - Head Exam Head Exam: NORMAL INSPECTION - ENT Exam ENT Exam: Mucous Membranes Moist - Neck Exam Neck Exam: absent: Lymphadenopathy, Meningismus - Respiratory Exam Respiratory Exam: Decreased Breath Sounds - Cardiovascular Exam Cardiovascular Exam: +S1, +S2 - GI/Abdominal Exam GI & Abdominal Exam: Soft. 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
[2016-07-10 20:39] VITALS: BP 131/80; PULSE 68
== END 2016-07-10 21:37 | DRG 640 ==
LOC: ED 12:35 → ERH 15:02 → 2RSO 18:40
PROVIDERS: ADMIT Internal Medicine Nephrology; ATTEND Internal Medicine Nephrology
PROC: 5A1D60Z (ICD-10-PCS; principal; 2016-07-07)
PROC: 30233N1 Transfusion of Nonautologous Red Blood Cells into Peripheral Vein, Percutaneous Approach (ICD-10-PCS; 2016-07-08)
PROC: 0HBRXZZ Excision of Toe Nail, External Approach (ICD-10-PCS; 2016-07-10)
DX: E87.79 Other fluid overload (principal); Z91.15 Patient's noncompliance with renal dialysis; I50.9 Heart failure, unspecified; N18.6 End stage renal disease; I13.2 Hypertensive heart and chronic kidney disease with heart failure and with stage 5 chronic kidney disease, or end stage renal disease; A41.9 Sepsis, unspecified organism; J18.9 Pneumonia, unspecified organism; E11.52 Type 2 diabetes mellitus with diabetic peripheral angiopathy with gangrene; E11.22 Type 2 diabetes mellitus with diabetic chronic kidney disease; D69.6 Thrombocytopenia, unspecified; N25.81 Secondary hyperparathyroidism of renal origin; D64.9 Anemia, unspecified; E11.40 Type 2 diabetes mellitus with diabetic neuropathy, unspecified; E87.5 Hyperkalemia; E78.5 Hyperlipidemia, unspecified; Z99.2 Dependence on renal dialysis; I48.91 Unspecified atrial fibrillation; S91.104A Unspecified open wound of right lesser toe(s) without damage to nail, initial encounter; Y95 Nosocomial condition; Z79.84 Long term (current) use of oral hypoglycemic drugs; Z86.73 Personal history of transient ischemic attack (TIA), and cerebral infarction without residual deficits; Z89.421 Acquired absence of other right toe(s); Z87.891 Personal history of nicotine dependence

== ENCOUNTER 2016-09-01 20:04 | Observation (INO) | payer MEDICARE, MEDICAID ==
--- NOTE | 2016-09-01 20:11 | ED PDOC ---
Arrival/HPI - General Chief Complaint: Medical Clearance Time Seen by Provider: 09/01/16 20:08 Historian: Patient - History of Present Illness Narrative History of Present Illness (Text): 09/01/16 20:11 Patient has a history of end-stage renal disease on hemodialysis, hyperkalemia, type II diabetes, dyslipidemia, thrombocytopenia. Presents after hemodialysis for low blood pressure. Patient's blood pressure currently 160s over 70s. Patient denies any complaints at this time. States that he has no fevers or chills, no cough, no shortness of breath, denies chest pain or dyspnea exertion. Patient states that he had full dialysis earlier today. Symptom Onset: Sudden Activities at Onset: Rest Context: Home Associated Symptoms (Text): none Past Medical History - Provider Review Nursing Documentation Reviewed: Yes - Infectious Disease Hx of Infectious Diseases: None - Tetanus Immunization Tetanus Immunization: Unknown - Cardiac Hx Cardiac Disorders: Yes Hx Hypertension: Yes Other/Comment: PVD - Pulmonary Hx Respiratory Disorders: Yes Hx Bronchitis: Yes Hx Pneumonia: Yes - Neurological Hx Paralysis: No - HEENT Hx HEENT Disorder: Yes Hx Blind: Yes (left eye blind) Hx Cataracts: Yes Hx Glaucoma: Yes Other/Comment: r eye blurrey vision after every dialysis - Renal Hx Dialysis: Yes Date of Last Dialysis Treatment: 09/01/16 Hx Renal Failure: Yes - Endocrine/Metabolic Hx Diabetes Mellitus Type 2: Yes - Hematological/Oncological Hx Blood Transfusions: No Hx Blood Transfusion Reaction: No - Integumentary Hx Dermatological Disorder: Yes Other/Comment: Bilateral dry feet, with right great toe amputation and right diabetic ulcer, dry skin ble and discolorations - Musculoskeletal/Rheumatological Hx Musculoskeletal Disorders: Yes - Gastrointestinal Hx Gastrointestinal Disorders: No - Genitourinary/Gynecological Hx Genitourinary Disorders: Yes - Psychiatric Hx Emotional Abuse: No Hx Physical Abuse: No Hx Substance Use: No - Surgical History Hx Amputation: Yes (r great toe) Other/Comment: r leg bypass [facility], r leg angio unssucessful 08/05/14, pancho, colonoscopy, right av fistula - Anesthesia Hx Anesthesia: Yes Hx Anesthesia Reactions: No Hx Malignant Hyperthermia: No - Suicidal Assessment Feels Threatened In Home Enviroment: No Family/Social History - Physician Review Nursing Documentation Reviewed: Yes Family/Social History: Unknown Family HX Smoking Status: Former Smoker Hx Alcohol Use: No Hx Substance Use: No Hx Substance Use Treatment: No Allergies/Home Meds Allergies/Adverse Reactions: Allergies No Known Allergies Allergy (Verified 07/07/16 16:45) Home Medications: Home Meds Medication Instructions Recorded Confirmed Aspirin [Adult Low Dose Aspirin EC] 81 mg PO DAILY 07/23/15 07/07/16 Atorvastatin [Lipitor] 20 mg PO HS 07/23/15 07/07/16 Docusate Sodium [Col-Rite] 100 mg PO BID 07/23/15 07/07/16 Sevelamer [Renagel] 800 mg PO DAILY 02/18/16 07/07/16 Acetaminophen [Tylenol 325mg tab] 2 tab PO Q4 PRN 07/07/16 07/07/16 DiphenhydrAMINE [Benadryl] 25 mg PO DAILY PRN 07/07/16 07/07/16 Insulin Human Regular [HumuLIN R] See Protocol SC BID 07/07/16 07/07/16 Lactulose [Generlac] 30 ml PO Q12 PRN 07/07/16 07/07/16 Metoprolol Succinate [Metoprolol 25 ng PO BID 07/07/16 07/07/16 Succinate] Pilocarpine HCl [Isopto Carpine] 1 drop OD QID 07/07/16 07/07/16 amLODIPine [Norvasc] 10 mg PO DAILY 07/07/16 07/07/16 oxyCODONE/Acetaminophen [Percocet 1 tab PO Q8 PRN 07/07/16 07/07/16 5/325 mg Tab] Dorzolamide 2%/Timolol 0.5% 1 drop OD BID 07/08/16 07/08/16 [Cosopt Ocumeter Plus 2%-0.5% 10 Ml] Review of Systems - Physician Review All systems were reviewed & negative as marked: Yes Physical Exam - Physical Exam Narrative Physical Exam (Text): - Review of Systems Constitutional: Normal. absent: Fatigue, Weight Change, Fevers Eyes: Normal ENT: denies sore throat, denies tristhmus Respiratory: Normal. absent: SOB, Cough, Sputum Cardiovascular: absent: Chest Pain, Palpitations, Syncope Gastrointestinal: Normal. absent: Abdominal Pain, Diarrhea, Nausea, Vomiting Genitourinary: Normal. absent: Dysuria, Frequency, Hematuria Musculoskeletal: Normal. absent: Arthralgias, Back Pain, Neck Pain Skin: no rashes, no erythema Neurological: absent: Focal Weakness Endocrine: Normal Hemo/Lymphatic: Normal Psychiatric: No suicidal or homicidal ideations Physical exam Patient appears age appropriate in no distress, speaking full sentences without difficulty - Systems Exam Head: Present: Atraumatic, Normocephalic Pupils: L. eye glaucoma (pt confirmed) Extroacular Muscles: Present: EOMI Conjunctiva: Present: Normal Mouth: Present: Moist Mucous Membranes Neck: Present: Normal Range of Motion. No: MIDLINE TENDERNESS, Paraspinal Tenderness Respiratory/Chest: Present: Clear to Auscultation, Good Air Exchange. No: Respiratory Distress, Accessory Muscle Use, Tachypneic Cardiovascular: Present: Regular Rate and Rhythm, Normal S1, S2, Peripheal Pulses Present. No: Murmurs Abdomen: Present: Normal Bowel Sounds. No: Tenderness, Distention, Peritoneal Signs, Rebound, Guarding Back: Present: Normal Inspection. No: Midline Tenderness, Paraspinal Tenderness Upper Extremity: Present: RUE HD access with +thrill/bruit/pulse. No: Cyanosis , Edema Lower Extremity: Present: Normal Inspection. No: Edema Neurological: Present: GCS=15, Speech Normal, cranial nerves II through XII fully intact with no cerebellar abnormality, neurosensory fully intact. No focal neurological deficits. Skin: Present: Warm, Dry, Normal Color. No: Rashes Lymphatic: Present: OX3, NI, NC Psychiatric: Present: Alert, Oriented x 3, Normal Insight, Normal Concentration Vital Signs Reviewed: Yes Vital Signs Temp Pulse Resp BP Pulse Ox 09/01/16 21:31 85 18 104/59 L 96 09/01/16 20:46 96 H 16 102/55 L 96 09/01/16 20:09 98.4 F 140 H 22 162/68 H 100 Temperature: Afebrile Blood Pressure: Hypertensive Pulse: Tachycardic Respiratory Rate: Normal Appearance: Positive for: Well-Appearing Pain Distress: None Mental Status: Positive for: Alert and Oriented X 3 Medical Decision Making ED Course and Treatment: 09/01/16 20:11 Previous records reviewed, patient was discharged from the hospital on 07/10/16, after being treated for acute anemia. Patient received transfusion. 09/01/16 20:33 Patient presents with an episode of hypotension after dialysis. Currently patient is hypertensive. Denies any complaints with no acute findings on physical examination. Patient's EKG shows atrial fibrillation, 147 bpm, no ST segment elevations. Interpreted by me. Previous records reviewed, patient had atrial fibrillation on his previous visit as well Cardizem ordered Labs and imaging pending 09/01/16 20:42 HR in the low 100s, BP about 105 systolic, as per RN will hold cardizem for now pt asymptomatic with no complaints at this time 09/01/16 21:[address] Kapoor who agrees to obs on remote/tele. Patient is in no distress. I have discussed the results and plan with the patient, who expresses understanding. Patient given the opportunity to ask question, all questions were answered and there is agreement with the plan to be admitted to the hospital. Chest xray interpreted by ED physician shows no pneumothorax, no cardiomegaly, no infiltrates - Lab Interpretations Lab Results: 09/01/16 20:27 09/01/16 20:27 Lab Results 09/01/16 20:27: Sodium 131 L, Potassium 4.1, Chloride 90 L, Carbon Dioxide 29, Anion Gap 16, BUN 20, Creatinine 5.8 H, Est GFR ( Amer) 12, Est GFR (Non- Af Amer) 10, Random Glucose 230 H, Calcium 9.2, Total Bilirubin 0.7, AST 26, ALT 24, Alkaline Phosphatase 91, Total Protein 7.7, Albumin 4.3, Globulin 3.5, Albumin/Globulin Ratio 1.2 09/01/16 20:27: PT 11.4, INR 1.06, APTT 28.7 09/01/16 20:27: WBC 4.3 L D, RBC 4.23, Hgb 13.5 L, Hct 39.2 L, MCV 92.7, MCH 31.9, MCHC 34.4, RDW 15.3 H, Plt Count 163, MPV 9.5, Gran % 60.8, Lymph % (Auto ) 21.0 L, [place] % (Auto) 8.9 H, Eos % (Auto) 7.9 H, Baso % (Auto) 1.4, Gran # 2.60, Lymph # 0.9 L, [place] # 0.4, Eos # 0.3, Baso # 0.06 I have reviewed the lab results: Yes - RAD Interpretation Radiology Orders: 09/01/16 20:21 CHEST PORTABLE [RAD] Stat - EKG Interpretation Interpreted by ED Physician: Yes Type: 12 lead EKG - Medication Orders Current Medication Orders: Amlodipine Besylate (Norvasc) 10 mg PO DAILY MAIKEL Aspirin (Ecotrin) 81 mg PO DAILY MAIKEL Atorvastatin Calcium (Lipitor) 20 mg PO HS MAIKEL Brimonidine Tartrate (Alphagan P 0.15% Opht) 1 drop OD TID MAIKEL Diphenhydramine HCl (Benadryl) 25 mg PO DAILY PRN PRN Reason: Itching / Pruritus Docusate Sodium (Colace) 100 mg PO BID MAIKEL Dorzolamide/Timolol (Cosopt 2%-0.5% Opht) 1 drop OD BID MAIKEL Insulin Human Regular (Humulin R High) 0 units SC ACHS MAIKEL PRN Reason: Protocol Metoprolol Succinate (Toprol Xl) 25 mg PO BID MAIKEL Oxycodone/Acetaminophen (Percocet 5/325 Mg Tab) 1 tab PO Q8 PRN PRN Reason: Pain, severe (8-10) Stop: 09/04/16 21:48 Pilocarpine HCl (Isopto Carpine 2% Opht Soln) 0 ml OD QID MAIKEL Sevelamer HCl (Renagel) 800 mg PO DAILY MAIKEL Discontinued Medications Aspirin (Aspirin Chewable) 324 mg PO STAT STA Stop: 09/01/16 20:22 Last Admin: 09/01/16 20:30 Dose: 324 mg Diltiazem HCl (Cardizem) 10 mg IVP STAT STA Stop: 09/01/16 20:22 Sodium Chloride (Sodium Chloride 0.9%) 500 mls @ 1,000 mls/hr IV .Q30M STA Stop: 09/01/16 22:01 - Scribe Statement The provider has reviewed the documentation as recorded by the Stevenibreji Dick All medical record entries made by the Stevenibreji were at my direction and personally dictated by me. I have reviewed the chart and agree that the record accurately reflects my personal performance of the history, physical exam, medical decision making, and the department course for this patient. I have also personally directed, reviewed, and agree with the discharge instructions and disposition. Disposition/Present on Arrival - Present on Arrival Any Indicators Present on Arrival: No History of DVT/PE: No History of Uncontrolled Diabetes: No Urinary Catheter: No History of Decub. Ulcer: No History Surgical Site Infection Following: Orthopedic Procedures - Disposition Have Diagnosis and Disposition been Completed?: Yes Diagnosis: ESRD (end stage renal disease) Disposition: HOSPITALIZED Disposition Time: 21:41 Patient Plan: Observation Patient Problems: Current Active Problems Problem Status Onset ESRD (end stage renal disease) Acute Condition: STABLE
[2016-09-01 20:23] VITALS: BMI 30.4
[2016-09-01 20:34] LABS: ADD MANUAL DIFF? NO
[2016-09-01 20:45] LABS: BASO # 0.06 K/mm3 (0.0-2.0); BASO % 1.4 % (0.0-3.0); EOS # 0.3 (0.0-0.7); EOS % 7.9 % (1.5-5.0); GRAN % 60.8 % (50.0-68.0); HEMATOCRIT 39.2 % (42.0-52.0); LYMPH # 0.9 (1.2-3.4); MEAN CELL VOLUME 92.7 fL (80.0-105.0); MEAN CORPUSCULAR HEMOGLOBIN 31.9 pg (25.0-35.0); MEAN CORPUSCULAR HGB CONC 34.4 g/dl (31.0-37.0); MEAN PLATELET VOLUME 9.5 fl (7.0-11.0); MONO # 0.4 (0.1-0.6); MONO % 8.9 % (1.0-6.0); PLATELET COUNT 163 10^3/uL (120.0-450.0); RED CELL DISTRIBUTION WIDTH 15.3 % (11.5-14.5); WHITE BLOOD COUNT 4.3 10^3/ul (4.5-11.0)
[2016-09-01 20:49] LABS: INR 1.06 (0.93-1.08); PARTIAL THROMBOPLASTIN TIME 28.7 Seconds (23.7-30.8)
[2016-09-01 20:57] LABS: ALB/GLOB RATIO 1.2 (1.1-1.8); BILIRUBIN,TOTAL 0.7 mg/dL (0.2-1.3); CALCIUM 9.2 mg/dL (8.4-10.5); POTASSIUM 4.1 mmol/L (3.6-5.0); TOTAL PROTEIN 7.7 g/dL (5.8-8.3)
[2016-09-01] MEDS ORDERED: Sodium Chloride 0.9% 500 ML IV STA (21:32)
[2016-09-01] MEDS ORDERED: Oxycodone/Acetaminophen 5/325 mg Tab PO PRN (21:47)
[2016-09-01] MEDS ORDERED: Pilocarpine 1% Opht (15ml) OD SCH (22:00)
[2016-09-01] MEDS: Insulin Reg-HIGH-Coverage SC SCH (22:30)
[2016-09-02 01:12] VITALS: RESP 20
[2016-09-02 07:05] VITALS: BP 114/61; PULSE 75; TEMP 98.3; O2SAT 100
[2016-09-02] MEDS: Dorzolamide 2%/Timolol 0.5% 100 DROP/10 ML BOTTLE OD SCH ×2 (09:31→17:31)
[2016-09-02] MEDS: Pilocarpine 2% Opht (15ml) OD SCH ×3 (09:32→17:33)
[2016-09-02] MEDS: Metoprolol Succinate 25 mg XL Tab PO SCH ×2 (10:03→17:33)
--- NOTE | 2016-09-02 10:06 | RAD ---
HISTORY: cough COMPARISON: 07/07/2016 FINDINGS: LUNGS: No active pulmonary disease. PLEURA: No significant pleural effusion identified, no pneumothorax apparent. CARDIOVASCULAR: Normal. OSSEOUS STRUCTURES: No significant abnormalities. VISUALIZED UPPER ABDOMEN: Normal. OTHER FINDINGS: None. IMPRESSION: No active disease.
[2016-09-02] MEDS: Brimonidine 0.15% 50 DROP/5 ML BOTTLE OD SCH ×2 (10:31→14:15)
--- NOTE | 2016-09-02 11:18 | CON ---
DATE: 09/02/2016 FAMILY PHYSICIAN: Dr. Taylor. REFERRING PHYSICIAN: Dr. Kapoor. REASON FOR CONSULTATION: To provide dialysis services for a patient admitted with atrial fibrillatio n and rapid ventricular response, post-dialysis on 09/01/2016. HISTORY OF PRESENT ILLNESS: The patient is a 66-year-old black male known to me for many years. The patient is a chronic dialysis patient at [facility]. History of end-stage renal disease, diabetes, hypertension, anemia, secondary hyperparathyroidism, history of severe peripheral vascular disease, status post lower extremity vascular bypass, status post right foot surgical amputations, [place] matt is blind in the left eye and legally blind in the right eye. History of paroxysmal atrial fibr illation and TIA. The patient states that post-dialysis yesterday he felt like his pressure was low and came to the Emergency Room. In the Emergency Room, he was found to be normotensive, but was foun d to be in atrial fibrillation with a heart rate of 147 beats per minute. The patient was admitted t o remote telemetry for monitoring and for cardiology input. The patient is not due for dialysis sunday which is 09/04/2016. PAST MEDICAL HISTORY: Significant for end-stage renal disease, NIDDM, hypertension, anemia, secondar y hyperparathyroidism, severe peripheral vascular disease, status post vascular bypass and amputation s, history of blindness, blind in the left eye and legally blind in the right eye. History of glauco ma. History of paroxysmal atrial fibrillation. The patient has a right upper extremity AV fistula. MEDICATIONS: At home include that of oxycodone/acetaminophen, Norvasc, Renagel, eyedrops, metoprolol , lactulose, sliding scale insulin, laxatives and stool softeners, Benadryl, Lipitor, aspirin, and p. r.n. Tylenol. ALLERGIES: The patient has no known allergies. CURRENT MEDICATIONS IN HOSPITAL: Include that of eyedrops, Benadryl, Colace, Ecotrin, sliding scale insulin, pilocarpine eyedrops, Lipitor, Norvasc, Percocet p.r.n., Renagel, and Toprol. SOCIAL HISTORY: The patient lives at the [facility]. He is an ex-smoker. He does not use alcohol and has no illicit drug abuse. FAMILY HISTORY: Noncontributory. REVIEW OF SYSTEMS: Ten plus systems reviewed with the patient, all negative except for what as noted above. The patient had no episodes of chest pain, palpitations or shortness of breath with his docu mented atrial fibrillation. PHYSICAL EXAMINATION: VITAL SIGNS: Blood pressure presently is 114/61, temperature is 98.3, respiratory rate is 20 with a pulse of 75. HEENT: Blind in the left eye, legally blind in the right eye. NECK: Supple with no neck vein distention. CHEST: Clear to auscultation and percussion. No rales, no rhonchi, no wheezing. CARDIOVASCULAR: Shows an irregular S1, S2, mitral regurgitation. No S3, no S4. No rub. ABDOMEN: Soft. No distention. Bowel sounds normal. No rebound, no guarding. BACK: No CVAT, no spinal tenderness. EXTREMITIES: Show no lower extremity edema. He has a healing wound of his right foot. Heel ulcers have healed. Diminished pulses in his lower extremities bilaterally. Positive right upper extremity AV fistula, positive thrill, positive bruit. NEUROLOGIC: Shows him to be alert, oriented x 3 with no gross focal motor or sensory deficits. LABORATORY DATA AND IMAGING: Labs on admission showed a white cell count of 4.3, hemoglobin 13.5, pl atelet count is 163,000. Coags are normal. Chemistries post-dialysis showed a sodium of 131, potass ium 4.1, chloride 90 with a CO2 of 29, BUN 20 with a creatinine of 5.8. Glucose was 230. Last gluco se check was 64. Calcium 9.2. Liver enzymes are normal. Albumin was 4.3. EKG on admission showed atrial fibrillation with a heart rate of 147 beats per minute. Presently on telemetry, heart rate is 75, irregular in atrial fibrillation. ASSESSMENT: 1. Atrial fibrillation with rapid ventricular response. The patient is being maintained on beta-blo cker therapy and his heart rate has returned back to normal. He was to have received IV diltiazem in the Emergency Room, but it was not given as his heart rate had come down without this medication. 2. End-stage renal disease. The patient is a Sunday, Sunday, Sunday dialysis patient at [facility]. No dialysis is scheduled for Sunday and in all likelihood, the patient will be dischar [facility] and he will be able to receive dialysis in the outpatient unit. 3. History of vke-xyartuz-ysmxvjmko diabetes mellitus. Continue to monitor sugars closely. He is o n sliding scale insulin. 4. History of hypertension. The patient will continue beta gabe therapy and calcium channel bloc ker therapy as noted above. 5. Secondary hyperparathyroidism. The patient will continue binder therapy. 6. History of hyperlipidemia. The patient will continue statin therapy. 7. History of peripheral vascular disease with healing lower extremity wounds. The patient will con tinue follow up with his bankruptcy judge, Dr. Iniguez. 8. History of blindness. The patient is blind in the left eye and legally blind in the right eye. He continues to follow with his distribution manager. 9. Past history of a transient ischemic attack. PLAN: 1. The patient appears to be stable. Heart rate is controlled. The patient will likely remain in a trial fibrillation. As per cardiology in light of all of his comorbidities, no chronic anticoagulati on given to patient. 2. From my standpoint, if the patient remains stable on telemetry over the day today, he likely can be discharged to the outpatient setting. 3. The patient seen by cardiology in the morning. 4. Continue a renal diet, binders and sliding scale insulin. 5. We will follow the patient along with you during the hospitalization. Thank you for letting me partake and share in the care of our mutual patient. Alberto Juarez MD cc: [id number] TT: 09/02/2016 11:17:56 Confirmation # [id number] Dictation # [id number] tn
--- NOTE | 2016-09-02 14:09 | CARD ---
APPROVED REPORT EKG Measurement Heart [id number] <Conclusion> Atrial fibrillation with rapid ventricular response with premature ventricular or aberrantly conducted complexes Left axis deviation Left ventricular hypertrophy with QRS widening ST & T wave abnormality, consider lateral ischemia or digitalis effect Abnormal ECG
[2016-09-02] MEDS: Insulin Reg-HIGH-Coverage SC SCH (17:32)
--- NOTE | 2016-09-03 21:37 | HP ---
HISTORY OF PRESENT ILLNESS: The patient has end-stage renal disease. He was getting hemodialyzed an d his blood pressure dropped in the dialysis unit. He was transferred to ER and admitted to the [facility] for hypertension. He had several such episodes in the past post dialysis when blood pressure dr opped. He denies any chest pain. No shortness of breath. He has diabetes mellitus type 2. Blood s ugars are fairly controlled. Also, he has history of hyperkalemia. He has chronic anemia and has re ceived several units of blood transfusion in the past. He also has thrombocytopenia and leukopenia. No fever, no shortness of breath. PAST MEDICAL HISTORY: End-stage renal disease on hemodialysis, peripheral vascular disease, hyperten kendrick, diabetes mellitus type 2, recurrent pneumonia, blind in left eye and history of glaucoma. PAST SURGICAL HISTORY: Right great toe amputation, right leg bypass at [facility], arteriovenous fistula for dialysis. ALLERGIES: No known drug allergies. SOCIAL HISTORY: He lives at home. PERSONAL HISTORY: Former smoker. No history of alcohol abuse. FAMILY HISTORY: No positive family history. HOME MEDICATIONS: Aspirin 81 mg daily, Lipitor 20 mg at bedtime, Renagel 800 mg daily, Tylenol 650 q . 4 hours p.r.n., lactulose 30 mL q. 12 hours, amlodipine 10 mg daily, oxycodone p.r.n. PHYSICAL EXAMINATION: GENERAL: Comfortable in bed, in no acute distress. VITAL SIGNS: Temperature 98.4, heart rate is 96 per minute, respiratory rate 16 per minute, blood pr essure 104/59, pulse ox is 96% on room air. HEENT: Normal. Blind in left eye. NECK: No lymphadenopathy. Oral mucosa moist. CHEST: Air entry present, equal bilateral. No added sounds. CARDIOVASCULAR: S1, S2 normal. No murmur, no gallop. ABDOMEN: Soft, nontender, no hepatosplenomegaly. EXTREMITIES: No edema. SKIN: Intact, dry. Peripheral pulsations present. CENTRAL NERVOUS SYSTEM: Alert, oriented x 3. No sensory motor deficit. SPINE: Nontender. LYMPHADENOPATHY: None. LABORATORY DATA: White count 4.3, hemoglobin 13.5, hematocrit 39.2, platelet count 163. Sodium 131, potassium 4.1, BUN 20, creatinine 5.8, glucose 230. Chest x-ray: No infiltrate. ASSESSMENT: 1. End-stage renal disease, on hemodialysis. 2. Hypotension post-dialysis. 3. Atrial fibrillation. 4. Diabetes mellitus type 2. 5. Peripheral vascular disease. 6. Leukopenia. 7. Anemia. PLAN: He will be admitted to tele monitoring. He received bolus 500 mL in the ER. Blood pressure i s normal now. We will give IV fluid at 80 mL an hour normal saline. We will continue Renagel 800 mg daily, Percocet p.r.n. for leg pain, metoprolol 25 mg p.o. b.i.d., Colace 100 mg p.o. b.i.d., Lipito r 20 mg daily, aspirin 81 mg daily, Norvasc 10 mg daily. We will continue to monitor blood count. W e will monitor troponins. We will continue hemodialysis as scheduled. Jocelin Holman MD cc: [id number] TT: 09/03/2016 21:35:55 giovani
--- NOTE | 2016-09-03 21:42 | DS ---
DISCHARGE DIAGNOSES: 1. End-stage renal disease on hemodialysis. 2. Hypotension, resolved. 3. Atrial fibrillation. 4. Diabetes mellitus type 2. 5. Peripheral vascular disease. 6. Leukopenia. 7. Anemia. HOSPITAL COURSE: The patient was admitted with hypotension post-hemodialysis. He was treated with f luid bolus and IV fluids. Blood pressure improved with the fluid bolus and it remained stable during hospitalization. Blood work was done. Electrolytes were normal. Home medications were continued. Generally, condition improved. He is asymptomatic now being. He is being discharged in stable cond ition. PHYSICAL EXAMINATION: GENERAL: On discharge, comfortable in bed, in no acute distress. VITAL SIGNS: Stable. Temperature 98.6. Heart rate is 80 per minute, irregularly irregular. Blood pressure 130/90, respiratory rate 16 per minute, oxygen saturation 98% room air. HEENT: Normal. CHEST: Air entry present, equal bilateral. No added sound. CARDIOVASCULAR: Within normal limits. ABDOMEN: Soft, nontender, no hepatosplenomegaly. EXTREMITIES: No edema. CENTRAL NERVOUS SYSTEM: Alert, oriented x 3, no focal sensorimotor deficit. CONDITION ON DISCHARGE: Stable. DISCHARGE MEDICATIONS: Norvasc 10 mg daily, Renagel 800 mg daily, metoprolol 25 mg p.o. b.i.d., lact ulose p.r.n., insulin as per instructions, Lipitor 20 mg daily, aspirin 81 mg daily, Tylenol 650 q. 4 hours p.r.n. DISPOSITION: Discharge home. Follow up with Dr. Kapoor in 1 week. Discussed with the staff nurse all prescriptions given. Time spent on preparing discharge and coordinating care was 60 minutes. Jocelin Holman MD cc: [id number] TT: 09/03/2016 21:42:16 giovani
== END 2016-09-02 18:47 | disposition home or self-care (01) ==
LOC: ED 20:04 → ERH 21:42 → 3RSO 09-02 00:32
PROVIDERS: ADMIT Internal Medicine Nephrology; ATTEND Internal Medicine Nephrology
DX: I95.3 Hypotension of hemodialysis (principal); N18.6 End stage renal disease; Z99.2 Dependence on renal dialysis; I12.0 Hypertensive chronic kidney disease with stage 5 chronic kidney disease or end stage renal disease; I48.0 Paroxysmal atrial fibrillation; H54.42 Blindness, left eye, normal vision right eye; E78.5 Hyperlipidemia, unspecified; E11.22 Type 2 diabetes mellitus with diabetic chronic kidney disease; H40.9 Unspecified glaucoma; D72.819 Decreased white blood cell count, unspecified; D69.6 Thrombocytopenia, unspecified; D64.9 Anemia, unspecified; N25.81 Secondary hyperparathyroidism of renal origin; Z79.82 Long term (current) use of aspirin; Z79.899 Other long term (current) drug therapy; Z86.73 Personal history of transient ischemic attack (TIA), and cerebral infarction without residual deficits; Z87.01 Personal history of pneumonia (recurrent); Z87.891 Personal history of nicotine dependence; Z89.411 Acquired absence of right great toe; E11.622 Type 2 diabetes mellitus with other skin ulcer; R40.2412 Glasgow coma scale score 13-15, at arrival to emergency department; I73.9 Peripheral vascular disease, unspecified
CPT/HCPCS: 71010; 80053; 82948; 85025; 85610; 85730; 87040; 93005; 96360; 99285; G0378; J7040

== ENCOUNTER 2016-10-04 14:27 | Observation (INO) | payer MEDICARE, MEDICAID ==
[2016-10-04 15:02] VITALS: TEMP 98.3; BMI 26.4
--- NOTE | 2016-10-04 15:10 | ED PDOC ---
Arrival/HPI <Daniel Rodrigues - Last Filed: 10/04/16 15:20> - General Historian: Patient <RadhaMikeOlivia - Last Filed: 10/05/16 17:36> - General Time Seen by Provider: 10/04/16 14:46 - History of Present Illness Narrative History of Present Illness (Text): 10/04/16 15:02 66 yo male with PMH of HTN, af. fib and ESRD on HD (M,W,F) presents to ED for dialysis. Patient states he went for his normal dialysis but when needle was placed it was painful. He decided to come to [facility] for dialysis. His aids social worker is Dr. Juarez. PMD: Dr. Kapoor (Olivia Garcia) Past Medical History - Provider Review Nursing Documentation Reviewed: Yes - Infectious Disease Hx of Infectious Diseases: None - Tetanus Immunization Tetanus Immunization: Unknown - Cardiac Hx Cardiac Disorders: Yes Hx Hypertension: Yes Other/Comment: PVD - Pulmonary Hx Respiratory Disorders: Yes Hx Bronchitis: Yes Hx Pneumonia: Yes - Neurological Hx Paralysis: No - HEENT Hx HEENT Disorder: Yes Hx Blind: Yes (left eye blind) Hx Cataracts: Yes Hx Glaucoma: Yes Other/Comment: r eye blurrey vision after every dialysis - Renal Hx Dialysis: Yes Date of Last Dialysis Treatment: 09/01/16 Hx Renal Failure: Yes - Endocrine/Metabolic Hx Diabetes Mellitus Type 2: Yes - Hematological/Oncological Hx Blood Transfusions: No Hx Blood Transfusion Reaction: No - Integumentary Hx Dermatological Disorder: Yes Other/Comment: Bilateral dry feet, with right great toe amputation and right diabetic ulcer, dry skin ble and discolorations - Musculoskeletal/Rheumatological Hx Falls: No - Gastrointestinal Hx Gastrointestinal Disorders: No - Genitourinary/Gynecological Hx Genitourinary Disorders: Yes - Psychiatric Hx Emotional Abuse: No Hx Physical Abuse: No Hx Substance Use: No - Surgical History Hx Amputation: Yes (r great toe) Other/Comment: r leg bypass [facility], r leg angio unssucessful 08/05/14, pancho, colonoscopy, right av fistula - Anesthesia Hx Anesthesia: Yes Hx Anesthesia Reactions: No Hx Malignant Hyperthermia: No - Suicidal Assessment Feels Threatened In Home Enviroment: No <Olivia Garcia - Last Filed: 10/05/16 17:36> Family/Social History - Physician Review Nursing Documentation Reviewed: Yes Family/Social History: No Known Family HX Smoking Status: Never Smoked Hx Alcohol Use: No Hx Substance Use: No Hx Substance Use Treatment: No <RadhaMikeOlivia - Last Filed: 10/05/16 17:36> Allergies/Home Meds <Daniel Rodrigues - Last Filed: 10/04/16 15:20> <RadhaMikeOlivia - Last Filed: 10/05/16 17:36> Allergies/Adverse Reactions: Allergies No Known Allergies Allergy (Verified 07/07/16 16:45) Home Medications: Home Meds Medication Instructions Recorded Confirmed Aspirin [Adult Low Dose Aspirin EC] 81 mg PO DAILY 07/23/15 07/07/16 Atorvastatin [Lipitor] 20 mg PO HS 07/23/15 07/07/16 Docusate Sodium [Col-Rite] 100 mg PO BID 07/23/15 07/07/16 Sevelamer [Renagel] 800 mg PO DAILY 02/18/16 07/07/16 Acetaminophen [Tylenol 325mg tab] 2 tab PO Q4 PRN 07/07/16 07/07/16 DiphenhydrAMINE [Benadryl] 25 mg PO DAILY PRN 07/07/16 07/07/16 Insulin Human Regular [HumuLIN R] See Protocol SC BID 07/07/16 07/07/16 Lactulose [Generlac] 30 ml PO Q12 PRN 07/07/16 07/07/16 Metoprolol Succinate 25 ng PO BID 07/07/16 07/07/16 Pilocarpine HCl [Isopto Carpine] 1 drop OD QID 07/07/16 07/07/16 amLODIPine [Norvasc] 10 mg PO DAILY 07/07/16 07/07/16 oxyCODONE/Acetaminophen [Percocet 1 tab PO Q8 PRN 07/07/16 07/07/16 5/325 mg Tab] Dorzolamide 2%/Timolol 0.5% 1 drop OD BID 07/08/16 07/08/16 [Cosopt 2%-0.5% Opht] Review of Systems - Review of Systems Constitutional: Normal. absent: Fatigue, Fevers Eyes: Normal ENT: Normal. absent: Sore Throat, Rhinorrhea Respiratory: Normal. absent: SOB, Cough Cardiovascular: Normal. absent: Chest Pain, Palpitations, Edema Gastrointestinal: Normal. absent: Abdominal Pain, Constipation, Diarrhea, Nausea, Vomiting Genitourinary Male: Normal Musculoskeletal: Normal. absent: Arthralgias, Myalgias Skin: Normal. absent: Rash, Pruritis Neurological: Normal. absent: Headache, Dizziness Endocrine: Normal Hemo/Lymphatic: Normal Psychiatric: Normal <Olivia Garcia - Last Filed: 10/05/16 17:36> Physical Exam - Systems Exam Head: Present: Atraumatic, Normocephalic Pupils: Present: PERRL. No: Non-Reactive, Pinpoint Extroacular Muscles: Present: EOMI Conjunctiva: Present: Normal Mouth: Present: Moist Mucous Membranes Neck: Present: Normal Range of Motion Respiratory/Chest: Present: Clear to Auscultation, Good Air Exchange. No: Respiratory Distress, Accessory Muscle Use, Wheezes, Rales, Rhonchi, Tachypneic Cardiovascular: Present: Regular Rate and Rhythm, Normal S1, S2. No: Murmurs, Tachycardic, Bradycardic Abdomen: Present: Normal Bowel Sounds. No: Tenderness, Distention, Peritoneal Signs Back: Present: Normal Inspection Upper Extremity: Present: Normal Inspection. No: Cyanosis, Edema Lower Extremity: Present: Normal Inspection. No: Edema, CALF TENDERNESS, Swelling Neurological: Present: GCS=15, CN II-XII Intact, Speech Normal Skin: Present: Warm, Dry, Normal Color. No: Rashes Psychiatric: Present: Alert, Oriented x 3, Normal Insight, Normal Concentration <Olivia Garcia - Last Filed: 10/05/16 17:36> Vital Signs Temp Pulse Resp BP Pulse Ox 10/04/16 15:01 98.3 F 86 18 155/81 H 97 Medical Decision Making <Daniel Rodrigues - Last Filed: 10/04/16 15:20> <Olivia Garcia - Last Filed: 10/05/16 17:36> ED Course and Treatment: Patient Seen With Resident: In agreement with resident note which contains more details about the patient. Patient was seen and evaluated with resident. Came up with plan and treatment together. A 66 year old male presents to emergency department for dialysis treatment. Additional HPI as noted by resident. No acute findings on physical exam. Ordered labs and hemodialysis treatment. (Daniel Rodrigues) 10/04/16 15:11 Impression: 66 yo male with PMH of HTN, af. fib and ESRD on HD (M,W,F) presents to ED for dialysis. Plan: - dialysis Progress: - dialysis unit was notified, they will see patient for dialysis. 10/04/16 19:33 - Labs reviewed, WBC count decreased. Lab results were discussed with patient. He denies any fever, cough, sore throat, chest complaint. Patient does not make urine. He was instructed to follow up with PMD in 1-2 day. he is to return to ED if new or worsening symptoms. (Olivia Garcia) - Medication Orders Current Medication Orders: Discontinued Medications Acetaminophen (Tylenol 325mg Tab) 650 mg PO STAT STA Stop: 10/04/16 16:16 Last Admin: 10/04/16 16:30 Dose: 650 mg - Scribe Statement The provider has reviewed the documentation as recorded by the Scribe <Daniel Rodrigues - Last Filed: 10/04/16 15:20> <Olivia Garcia - Last Filed: 10/05/16 17:36> - Scribe Statement Lauro Dick Provider Scribe Attestation: All medical record entries made by the Scribe were at my direction and personally dictated by me. I have reviewed the chart and agree that the record accurately reflects my personal performance of the history, physical exam, medical decision making, and the department course for this patient. I have also personally directed, reviewed, and agree with the discharge instructions and disposition. (Daniel Rodrigues) Disposition/Present on Arrival <Daniel Rodrigues - Last Filed: 10/04/16 15:20> - Present on Arrival Any Indicators Present on Arrival: Yes History of DVT/PE: No History of Uncontrolled Diabetes: Yes Urinary Catheter: No History Surgical Site Infection Following: None - Disposition Have Diagnosis and Disposition been Completed?: Yes Disposition Time: 15:00 Patient Plan: Observation <Olivia Garcia - Last Filed: 10/05/16 17:36> - Disposition Diagnosis: Dialysis patient Disposition: HOME/ ROUTINE Condition: GOOD
[2016-10-04 15:57] LABS: ADD MANUAL DIFF? NO
[2016-10-04 16:04] LABS: BASO # 0.04 K/mm3 (0.0-2.0); BASO % 1.5 % (0.0-3.0); EOS # 0.3 (0.0-0.7); EOS % 10.7 % (1.5-5.0); GRAN # 1.56 (1.4-6.5); GRAN % 59.6 % (50.0-68.0); HEMATOCRIT 32.6 % (42.0-52.0); LYMPH # 0.6 (1.2-3.4); LYMPH % 24.4 % (22.0-35.0); MEAN CELL VOLUME 94.5 fL (80.0-105.0); MEAN CORPUSCULAR HEMOGLOBIN 31.9 pg (25.0-35.0); MEAN CORPUSCULAR HGB CONC 33.7 g/dl (31.0-37.0); MEAN PLATELET VOLUME 8.8 fl (7.0-11.0); MONO # 0.1 (0.1-0.6); MONO % 3.8 % (1.0-6.0); PLATELET COUNT 113 10^3/uL (120.0-450.0); RED CELL DISTRIBUTION WIDTH 15.5 % (11.5-14.5)
[2016-10-04 16:09] LABS: ALB/GLOB RATIO 1.3 (1.1-1.8); BILIRUBIN,TOTAL 0.5 mg/dL (0.2-1.3); MAGNESIUM 2.4 mg/dL (1.7-2.2); PHOSPHOROUS 5.2 mg/dL (2.5-4.5); POTASSIUM 4.4 mmol/L (3.6-5.0)
[2016-10-04 16:22] LABS: WHITE BLOOD COUNT 2.6 10^3/ul (4.5-11.0)
[2016-10-04 19:59] VITALS: BP 132/75; PULSE 70; RESP 16; O2SAT 99
== END 2016-10-04 19:30 | disposition home or self-care (01) ==
LOC: ED 14:27 → EROBSV 15:00
PROVIDERS: ADMIT Student in an Organized Health Care Education/Training Program; ATTEND Student in an Organized Health Care Education/Training Program
DX: Z99.2 Dependence on renal dialysis (principal); I12.0 Hypertensive chronic kidney disease with stage 5 chronic kidney disease or end stage renal disease; N18.6 End stage renal disease; I48.91 Unspecified atrial fibrillation; E11.9 Type 2 diabetes mellitus without complications
CPT/HCPCS: 80053; 83735; 84100; 85025; 99283; G0257; G0378

== ENCOUNTER 2016-10-06 14:40 | Observation (INO) | payer MEDICARE, MEDICAID ==
[2016-10-06 15:08] VITALS: BMI 40.4
--- NOTE | 2016-10-06 15:16 | ED PDOC ---
Arrival/HPI - General Historian: Patient <Olivia Garcia - Last Filed: 10/06/16 20:09> <Daniel Rodrigues - Last Filed: 10/06/16 21:30> - General Time Seen by Provider: 10/06/16 14:41 - History of Present Illness Narrative History of Present Illness (Text): 10/06/16 15:11 66 yo male with PMH of ESRD on hemodialysis M,W,F presents to ED for dialysis. Patient went to outpatient dialysis center but was not able to get dialysis done. He came to ED for hemodialysis. He denies fever, chill, n/v, abd pain, chest pain, sob. PMD: Dr. Kapoor (Olivia Garcia) Past Medical History - Provider Review Nursing Documentation Reviewed: Yes - Infectious Disease Hx of Infectious Diseases: None - Tetanus Immunization Tetanus Immunization: Unknown - Cardiac Hx Cardiac Disorders: Yes Hx Hypertension: Yes Other/Comment: PVD - Pulmonary Hx Respiratory Disorders: Yes Hx Bronchitis: Yes Hx Pneumonia: Yes - Neurological Hx Paralysis: No - HEENT Hx HEENT Disorder: Yes Hx Blind: Yes (left eye blind) Hx Cataracts: Yes Hx Glaucoma: Yes Other/Comment: r eye blurrey vision after every dialysis - Renal Hx Dialysis: Yes Date of Last Dialysis Treatment: 09/01/16 Hx Renal Failure: Yes - Endocrine/Metabolic Hx Diabetes Mellitus Type 2: Yes - Hematological/Oncological Hx Blood Transfusions: No Hx Blood Transfusion Reaction: No - Integumentary Hx Dermatological Disorder: Yes Other/Comment: Bilateral dry feet, with right great toe amputation and right diabetic ulcer, dry skin ble and discolorations - Musculoskeletal/Rheumatological Hx Falls: No - Gastrointestinal Hx Gastrointestinal Disorders: No - Genitourinary/Gynecological Hx Genitourinary Disorders: Yes - Psychiatric Hx Emotional Abuse: No Hx Physical Abuse: No Hx Substance Use: No - Surgical History Hx Amputation: Yes (r great toe) Other/Comment: r leg bypass [facility], r leg angio unssucessful 08/05/14, pancho, colonoscopy, right av fistula - Anesthesia Hx Anesthesia: Yes Hx Anesthesia Reactions: No Hx Malignant Hyperthermia: No - Suicidal Assessment Feels Threatened In Home Enviroment: No <Olivia Garcia - Last Filed: 10/06/16 20:09> Family/Social History - Physician Review Nursing Documentation Reviewed: Yes Family/Social History: No Known Family HX Smoking Status: Never Smoked Hx Alcohol Use: No Hx Substance Use: No Hx Substance Use Treatment: No <Olivia Garcia - Last Filed: 10/06/16 20:09> Allergies/Home Meds <RadhaMikeOlivia - Last Filed: 10/06/16 20:09> <Daniel Rodrigues - Last Filed: 10/06/16 21:30> Allergies/Adverse Reactions: Allergies No Known Allergies Allergy (Verified 10/06/16 15:39) Home Medications: Home Meds Medication Instructions Recorded Confirmed Aspirin [Adult Low Dose Aspirin EC] 81 mg PO DAILY 07/23/15 10/06/16 Atorvastatin [Lipitor] 20 mg PO HS 07/23/15 10/06/16 Docusate Sodium [Col-Rite] 100 mg PO BID 07/23/15 10/06/16 Sevelamer [Renagel] 800 mg PO DAILY 02/18/16 10/06/16 Acetaminophen [Tylenol 325mg tab] 2 tab PO Q4 PRN 07/07/16 10/06/16 DiphenhydrAMINE [Benadryl] 25 mg PO DAILY PRN 07/07/16 10/06/16 Insulin Human Regular [HumuLIN R] See Protocol SC BID 07/07/16 10/06/16 Lactulose [Generlac] 30 ml PO Q12 PRN 07/07/16 10/06/16 Metoprolol Succinate 25 ng PO BID 07/07/16 10/06/16 Pilocarpine HCl [Isopto Carpine] 1 drop OD QID 07/07/16 10/06/16 amLODIPine [Norvasc] 10 mg PO DAILY 07/07/16 10/06/16 oxyCODONE/Acetaminophen [Percocet 1 tab PO Q8 PRN 07/07/16 10/06/16 5/325 mg Tab] Dorzolamide 2%/Timolol 0.5% 1 drop OD BID 07/08/16 10/06/16 [Cosopt 2%-0.5% Opht] Review of Systems - Review of Systems Constitutional: Normal. absent: Fatigue, Fevers Eyes: Normal. absent: Vision Changes ENT: Normal. absent: Sore Throat, Rhinorrhea, Sinus Congestion Respiratory: Normal. absent: SOB, Cough, Sputum, Wheezing Cardiovascular: Normal. absent: Chest Pain, Palpitations, Edema, Calf Pain, Syncope Gastrointestinal: Normal. absent: Abdominal Pain, Constipation, Diarrhea, Nausea, Vomiting Genitourinary Male: Normal. absent: Dysuria, Frequency, Hematuria Musculoskeletal: Normal. absent: Arthralgias, Myalgias Skin: Normal. absent: Rash, Pruritis Neurological: Normal. absent: Headache, Dizziness Endocrine: Normal. absent: Diaphoresis Hemo/Lymphatic: Normal Psychiatric: Normal <Olivia Garcia - Last Filed: 10/06/16 20:09> Physical Exam Appearance: Positive for: Well-Appearing, Non-Toxic, Comfortable Pain Distress: None Mental Status: Positive for: Alert and Oriented X 3 - Systems Exam Head: Present: Atraumatic, Normocephalic Pupils: Present: PERRL Extroacular Muscles: Present: EOMI Conjunctiva: Present: Normal Mouth: Present: Moist Mucous Membranes Neck: Present: Normal Range of Motion Respiratory/Chest: Present: Clear to Auscultation, Good Air Exchange. No: Respiratory Distress, Accessory Muscle Use, Wheezes, Rales, Rhonchi, Tachypneic Cardiovascular: Present: Regular Rate and Rhythm, Normal S1, S2. No: Murmurs, Tachycardic, Bradycardic Abdomen: Present: Normal Bowel Sounds. No: Tenderness, Distention, Peritoneal Signs Back: Present: Normal Inspection Upper Extremity: Present: Normal Inspection. No: Cyanosis, Edema Lower Extremity: Present: Normal Inspection. No: Edema Neurological: Present: GCS=15, CN II-XII Intact, Speech Normal Skin: Present: Warm, Dry, Normal Color. No: Rashes Psychiatric: Present: Alert, Oriented x 3, Normal Insight, Normal Concentration <Olivia Garcia - Last Filed: 10/06/16 20:09> Medical Decision Making <Olivia Garcia - Last Filed: 10/06/16 20:09> <Daniel Rodrigues - Last Filed: 10/06/16 21:30> ED Course and Treatment: 10/06/16 15:19 Impression: 66 yo male with PMH of ESRD on hemodialysis M,W,F presents to ED for dialysis. Plan: - hemodialysis Progress: - Spoke with Dr. Rodriguez, she agreed to dialysis - Spoke with dialysis center, they are aware of patient. (Olivia Garcia) 10/06/16 20:02 pt seen with resident. pt here for hd, as he got into argument with staff at his outpt hd staff, and was advised to present to er for hd. case discussed with dr rodriguez upon arrival. will make arrangements for hd here, until arrangements for continued outpt hd can be made. exam wnl. pt returned from hd in [place]. asking for d.c (Daniel Rodrigues) - Medication Orders Current Medication Orders: Discontinued Medications Acetaminophen (Tylenol 325mg Tab) 650 mg PO ONCE ONE Stop: 10/06/16 16:51 Disposition/Present on Arrival - Present on Arrival Any Indicators Present on Arrival: Yes History of DVT/PE: No History of Uncontrolled Diabetes: Yes Urinary Catheter: No History Surgical Site Infection Following: None - Disposition Disposition Time: 20:05 Patient Plan: Discharge <Olivia Garcia - Last Filed: 10/06/16 20:09> - Present on Arrival Any Indicators Present on Arrival: No - Disposition Have Diagnosis and Disposition been Completed?: Yes <Daniel Rodrigues - Last Filed: 10/06/16 21:30> - Disposition Diagnosis: ESRD (end stage renal disease) Disposition: HOME/ ROUTINE Condition: STABLE
[2016-10-06 16:34] LABS: ADD MANUAL DIFF? NO
[2016-10-06 16:38] LABS: BASO # 0.06 K/mm3 (0.0-2.0); BASO % 1.6 % (0.0-3.0); EOS # 0.3 (0.0-0.7); EOS % 7.4 % (1.5-5.0); GRAN % 60.3 % (50.0-68.0); HEMATOCRIT 32.6 % (42.0-52.0); LYMPH # 0.9 (1.2-3.4); LYMPH % 25.2 % (22.0-35.0); MEAN CELL VOLUME 94.2 fL (80.0-105.0); MEAN CORPUSCULAR HEMOGLOBIN 32.1 pg (25.0-35.0); MONO # 0.2 (0.1-0.6); MONO % 5.5 % (1.0-6.0); PLATELET COUNT 103 10^3/uL (120.0-450.0); RED CELL DISTRIBUTION WIDTH 15.4 % (11.5-14.5); WHITE BLOOD COUNT 3.7 10^3/ul (4.5-11.0)
[2016-10-06 17:22] LABS: ALB/GLOB RATIO 1.3 (1.1-1.8); BILIRUBIN,TOTAL 0.5 mg/dL (0.2-1.3); CALCIUM 8.9 mg/dL (8.4-10.5); MAGNESIUM 2.4 mg/dL (1.7-2.2); PHOSPHOROUS 5.7 mg/dL (2.5-4.5); POTASSIUM 4.9 mmol/L (3.6-5.0); TOTAL PROTEIN 6.9 g/dL (5.8-8.3)
[2016-10-06 19:57] VITALS: BP 118/58; PULSE 69; RESP 14; TEMP 97.7; O2SAT 100
== END 2016-10-06 19:58 | disposition home or self-care (01) ==
LOC: ED 14:40 → EROBSV 15:17
PROVIDERS: ADMIT Student in an Organized Health Care Education/Training Program; ATTEND Student in an Organized Health Care Education/Training Program
DX: N18.6 End stage renal disease (principal); Z99.2 Dependence on renal dialysis
CPT/HCPCS: 36415; 80053; 83735; 84100; 85025; 99282; G0378

== ENCOUNTER 2016-10-09 14:39 | Emergency (ER) | payer MEDICARE, MEDICAID ==
[2016-10-09 14:40] VITALS: BMI 40.4
--- NOTE | 2016-10-09 16:25 | ED PDOC ---
Arrival/HPI - General Chief Complaint: Shortness Of Breath Time Seen by Provider: 10/09/16 15:02 - History of Present Illness Narrative History of Present Illness (Text): 10/09/16 20:34 Pt in the ER stating he needs HD. Pt denies complaints and states he has no cp/ sob/mares. States he did not want to go to his usual HD center. Past Medical History - Provider Review Nursing Documentation Reviewed: Yes - Infectious Disease Hx of Infectious Diseases: None - Tetanus Immunization Tetanus Immunization: Unknown - Cardiac Hx Cardiac Disorders: Yes Hx Hypertension: Yes Other/Comment: PVD - Pulmonary Hx Respiratory Disorders: Yes Hx Bronchitis: Yes Hx Pneumonia: Yes - Neurological Hx Paralysis: No - HEENT Hx HEENT Disorder: Yes Hx Blind: Yes (left eye blind) Hx Cataracts: Yes Hx Glaucoma: Yes Other/Comment: r eye blurrey vision after every dialysis - Renal Hx Dialysis: Yes Type of Dialysis Access: R FA Date of Last Dialysis Treatment: 10/06/16 Hx Renal Failure: Yes - Endocrine/Metabolic Hx Diabetes Mellitus Type 2: Yes - Hematological/Oncological Hx Blood Transfusions: No Hx Blood Transfusion Reaction: No - Integumentary Hx Dermatological Disorder: Yes Other/Comment: Bilateral dry feet, with right great toe amputation and right diabetic ulcer, dry skin ble and discolorations - Musculoskeletal/Rheumatological Hx Falls: No - Gastrointestinal Hx Gastrointestinal Disorders: No - Genitourinary/Gynecological Hx Genitourinary Disorders: Yes - Psychiatric Hx Emotional Abuse: No Hx Physical Abuse: No Hx Substance Use: No - Surgical History Hx Amputation: Yes (r great toe) Other/Comment: r leg bypass [facility], r leg angio unssucessful 08/05/14, pancho, colonoscopy, right av fistula - Anesthesia Hx Anesthesia: Yes Hx Anesthesia Reactions: No Hx Malignant Hyperthermia: No - Suicidal Assessment Feels Threatened In Home Enviroment: No Family/Social History Family/Social History: Unknown Family HX Smoking Status: Never Smoked Hx Alcohol Use: No Hx Substance Use: No Hx Substance Use Treatment: No Allergies/Home Meds Allergies/Adverse Reactions: Allergies No Known Allergies Allergy (Verified 10/09/16 15:12) Home Medications: Home Meds Medication Instructions Recorded Confirmed Aspirin [Adult Low Dose Aspirin EC] 81 mg PO DAILY 07/23/15 10/09/16 Atorvastatin [Lipitor] 20 mg PO HS 07/23/15 10/09/16 Docusate Sodium [Col-Rite] 100 mg PO BID 07/23/15 10/09/16 Sevelamer [Renagel] 800 mg PO DAILY 02/18/16 10/09/16 Acetaminophen [Tylenol 325mg tab] 2 tab PO Q4 PRN 07/07/16 10/09/16 DiphenhydrAMINE [Benadryl] 25 mg PO DAILY PRN 07/07/16 10/09/16 Insulin Human Regular [HumuLIN R] See Protocol SC BID 07/07/16 10/09/16 Lactulose [Generlac] 30 ml PO Q12 PRN 07/07/16 10/09/16 Metoprolol Succinate 25 ng PO BID 07/07/16 10/09/16 Pilocarpine HCl [Isopto Carpine] 1 drop OD QID 07/07/16 10/09/16 amLODIPine [Norvasc] 10 mg PO DAILY 07/07/16 10/09/16 oxyCODONE/Acetaminophen [Percocet 1 tab PO Q8 PRN 07/07/16 10/09/16 5/325 mg Tab] Dorzolamide 2%/Timolol 0.5% 1 drop OD BID 07/08/16 10/09/16 [Cosopt 2%-0.5% Opht] Physical Exam - Physical Exam Narrative Physical Exam (Text): - Review of Systems Constitutional: Normal. absent: Fatigue, Weight Change, Fevers Eyes: Normal ENT: denies sore throat, denies tristhmus Respiratory: Normal. absent: SOB, Cough, Sputum Cardiovascular: absent: Chest Pain, Palpitations, Syncope Gastrointestinal: Normal. absent: Abdominal Pain, Diarrhea, Nausea, Vomiting Genitourinary: Normal. absent: Dysuria, Frequency, Hematuria Musculoskeletal: Normal. absent: Arthralgias, Back Pain, Neck Pain Skin: no rashes, no erythema Neurological: absent: Focal Weakness Endocrine: Normal Hemo/Lymphatic: Normal Psychiatric: No suicidal or homicidal ideations Physical exam Patient appears age appropriate in no distress, speaking full sentences without difficulty - Systems Exam Head: Present: Atraumatic, Normocephalic Pupils: Present: PERRL Extroacular Muscles: Present: EOMI Conjunctiva: Present: Normal Mouth: Present: Moist Mucous Membranes Neck: Present: Normal Range of Motion. No: MIDLINE TENDERNESS, Paraspinal Tenderness Respiratory/Chest: Present: Clear to Auscultation, Good Air Exchange. No: Respiratory Distress, Accessory Muscle Use, Tachypneic Cardiovascular: Present: Regular Rate and Rhythm, Normal S1, S2, Peripheal Pulses Present. No: Murmurs Abdomen: Present: Normal Bowel Sounds. No: Tenderness, Distention, Peritoneal Signs, Rebound, Guarding Back: Present: Normal Inspection. No: Midline Tenderness, Paraspinal Tenderness Upper Extremity: Present: Normal Inspection. No: Cyanosis, Edema Lower Extremity: Present: Normal Inspection. No: Edema Neurological: Present: GCS=15, Speech Normal, cranial nerves II through XII fully intact with no cerebellar abnormality, neurosensory fully intact. No focal neurological deficits. Skin: Present: Warm, Dry, Normal Color. No: Rashes Lymphatic: Present: OX3, NI, NC Psychiatric: Present: Alert, Oriented x 3, Normal Insight, Normal Concentration Vital Signs Reviewed: Yes Vital Signs Temp Pulse Resp BP Pulse Ox 10/09/16 20:17 97.8 F 82 18 132/65 98 10/09/16 15:13 99.0 F 79 19 158/80 H 97 Temperature: Afebrile Blood Pressure: Hypertensive Pulse: Regular Respiratory Rate: Normal Appearance: Positive for: Well-Appearing Pain Distress: None Mental Status: Positive for: Alert and Oriented X 3 ED OBSERVATION Discharge: Yes Date of observation admission: 10/09/16 Time of observation admission: 15:00 - Observation admission statement Patient is being placed in observation because:: needs HD - Goals of Observation Goals of observation are:: HD - Progress Note Progress Note: 10/09/16 16:25 informed by RN pt is being called for HD 10/09/16 20:32 pt in no distress, denies complaints, back from HD, asking to be dc'd home Pt states he understands to return to the ER right away for new or worsening symptoms or for inability to f/u with PMD or specialist as instructed. Patient states that he fully agrees with and understands discharge instructions. States that he agrees with the plan and disposition. Verbalized and repeated discharge instructions and plan. I have given the patient opportunity to ask any additional questions. Disposition/Present on Arrival - Present on Arrival Any Indicators Present on Arrival: No History of DVT/PE: No History of Uncontrolled Diabetes: Yes Urinary Catheter: No History of Decub. Ulcer: No History Surgical Site Infection Following: None - Disposition Have Diagnosis and Disposition been Completed?: Yes Diagnosis: ESRD (end stage renal disease) Disposition: HOME/ ROUTINE Disposition Time: 15:00 Patient Plan: Discharge Patient Problems: Current Active Problems Problem Status Onset ESRD (end stage renal disease) Acute Condition: STABLE Additional Instructions: PLEASE RETURN TO THE EMERGENCY DEPARTMENT FOR NEW OR WORSENING SYMPTOMS. RETURN RIGHT AWAY IF YOU CANNOT FOLLOW UP WITH YOUR PRIMARY CARE DOCTOR, CLINIC, OR SPECIALIST IN 1-2 DAYS. Referrals: PCP,NO [Primary Care Provider] - Follow up with primary
[2016-10-09 20:17] VITALS: BP 132/65; PULSE 82; RESP 18; TEMP 97.8; O2SAT 98
== END 2016-10-09 20:34 | disposition home or self-care (01) ==
LOC: ED 14:39
DX: N18.6 End stage renal disease (principal); Z99.2 Dependence on renal dialysis
CPT/HCPCS: 99284; G0257

== ENCOUNTER 2016-10-11 13:33 | Emergency (ER) | payer MEDICARE, MEDICAID ==
[2016-10-11 13:34] VITALS: BMI 40.4
[2016-10-11 13:52] VITALS: RESP 18
--- NOTE | 2016-10-11 13:58 | ED PDOC ---
Arrival/HPI - General Chief Complaint: Medical Clearance Time Seen by Provider: 10/11/16 13:38 Historian: Patient - History of Present Illness Narrative History of Present Illness (Text): 10/11/16 13:54 A 66 year old male, whose past medical history includes ESRD with hemodialysis on M,W,F, presents to the emergency department for dialysis treatment. Patient denies any fever, chills, nausea, vomiting, diarrhea, abdominal pain, chest pain , shortness of breath or any other complaints. Patient states he did not want to go to his usual hemodialysis center. PMD: Dr. Taylor Time/Duration: Prior to Arrival Quality: Other Context: Other Past Medical History - Provider Review Nursing Documentation Reviewed: Yes - Infectious Disease Hx of Infectious Diseases: None - Tetanus Immunization Tetanus Immunization: Unknown - Cardiac Hx Cardiac Disorders: Yes Hx Hypertension: Yes Other/Comment: PVD - Pulmonary Hx Respiratory Disorders: Yes Hx Bronchitis: Yes Hx Pneumonia: Yes - Neurological Hx Paralysis: No - HEENT Hx HEENT Disorder: Yes Hx Blind: Yes (left eye blind) Hx Cataracts: Yes Hx Glaucoma: Yes Other/Comment: r eye blurrey vision after every dialysis - Renal Hx Dialysis: Yes Date of Last Dialysis Treatment: 10/06/16 Hx Renal Failure: Yes - Endocrine/Metabolic Hx Diabetes Mellitus Type 2: Yes - Hematological/Oncological Hx Blood Transfusions: No Hx Blood Transfusion Reaction: No - Integumentary Hx Dermatological Disorder: Yes Other/Comment: Bilateral dry feet, with right great toe amputation and right diabetic ulcer, dry skin ble and discolorations - Musculoskeletal/Rheumatological Hx Falls: No - Gastrointestinal Hx Gastrointestinal Disorders: No - Genitourinary/Gynecological Hx Genitourinary Disorders: Yes - Psychiatric Hx Emotional Abuse: No Hx Physical Abuse: No Hx Substance Use: No - Surgical History Hx Amputation: Yes (r great toe) Other/Comment: r leg bypass [facility], r leg angio unssucessful 08/05/14, pancho, colonoscopy, right av fistula - Anesthesia Hx Anesthesia: Yes Hx Anesthesia Reactions: No Hx Malignant Hyperthermia: No - Suicidal Assessment Feels Threatened In Home Enviroment: No Family/Social History - Physician Review Nursing Documentation Reviewed: Yes Family/Social History: No Known Family HX Smoking Status: Never Smoked Hx Alcohol Use: No Hx Substance Use: No Hx Substance Use Treatment: No Allergies/Home Meds Allergies/Adverse Reactions: Allergies No Known Allergies Allergy (Verified 10/11/16 13:52) Home Medications: Home Meds Medication Instructions Recorded Confirmed Aspirin [Adult Low Dose Aspirin EC] 81 mg PO DAILY 07/23/15 10/09/16 Atorvastatin [Lipitor] 20 mg PO HS 07/23/15 10/09/16 Docusate Sodium [Col-Rite] 100 mg PO BID 07/23/15 10/09/16 Sevelamer [Renagel] 800 mg PO DAILY 02/18/16 10/09/16 Acetaminophen [Tylenol 325mg tab] 2 tab PO Q4 PRN 07/07/16 10/09/16 DiphenhydrAMINE [Benadryl] 25 mg PO DAILY PRN 07/07/16 10/09/16 Insulin Human Regular [HumuLIN R] See Protocol SC BID 07/07/16 10/09/16 Lactulose [Generlac] 30 ml PO Q12 PRN 07/07/16 10/09/16 Metoprolol Succinate 25 ng PO BID 07/07/16 10/09/16 Pilocarpine HCl [Isopto Carpine] 1 drop OD QID 07/07/16 10/09/16 amLODIPine [Norvasc] 10 mg PO DAILY 07/07/16 10/09/16 oxyCODONE/Acetaminophen [Percocet 1 tab PO Q8 PRN 07/07/16 10/09/16 5/325 mg Tab] Dorzolamide 2%/Timolol 0.5% 1 drop OD BID 07/08/16 10/09/16 [Cosopt 2%-0.5% Opht] Review of Systems - Physician Review All systems were reviewed & negative as marked: Yes - Review of Systems Constitutional: Normal. absent: Fevers, Night Sweats Respiratory: absent: SOB Cardiovascular: absent: Chest Pain Gastrointestinal: absent: Abdominal Pain, Diarrhea, Nausea, Vomiting Physical Exam Vital Signs Reviewed: Yes Vital Signs Temp Pulse Resp BP Pulse Ox 10/11/16 18:45 98.5 F 64 18 169/78 H 99 10/11/16 13:49 98.8 F 75 18 159/66 H 97 Temperature: Afebrile Blood Pressure: Hypertensive Pulse: Regular Respiratory Rate: Normal Appearance: Positive for: Well-Appearing, Non-Toxic, Comfortable Pain Distress: None Mental Status: Positive for: Alert and Oriented X 3 - Systems Exam Head: Present: Atraumatic, Normocephalic Pupils: Present: PERRL Extroacular Muscles: Present: EOMI Conjunctiva: Present: Normal Mouth: Present: Moist Mucous Membranes Neck: Present: Normal Range of Motion Respiratory/Chest: Present: Clear to Auscultation, Good Air Exchange. No: Respiratory Distress, Accessory Muscle Use Cardiovascular: Present: Regular Rate and Rhythm, Normal S1, S2. No: Murmurs Abdomen: Present: Normal Bowel Sounds. No: Tenderness, Distention, Peritoneal Signs Back: Present: Normal Inspection Upper Extremity: Present: Normal Inspection. No: Cyanosis, Edema Lower Extremity: Present: Normal Inspection. No: Edema Neurological: Present: GCS=15, CN II-XII Intact, Speech Normal Skin: Present: Warm, Dry, Normal Color. No: Rashes Psychiatric: Present: Alert, Oriented x 3, Normal Insight, Normal Concentration Medical Decision Making ED Course and Treatment: 10/11/16 13:54 Impression: A 66 year old male presents for hemodialysis treatment. - Scribe Statement The provider has reviewed the documentation as recorded by the Scribe Ayse Campa Provider Scribe Attestation: All medical record entries made by the Scribe were at my direction and personally dictated by me. I have reviewed the chart and agree that the record accurately reflects my personal performance of the history, physical exam, medical decision making, and the department course for this patient. I have also personally directed, reviewed, and agree with the discharge instructions and disposition. Disposition/Present on Arrival - Present on Arrival Any Indicators Present on Arrival: No History of DVT/PE: No History of Uncontrolled Diabetes: Yes Urinary Catheter: No History of Decub. Ulcer: No History Surgical Site Infection Following: None - Disposition Have Diagnosis and Disposition been Completed?: Yes Diagnosis: ESRD (end stage renal disease) on dialysis Disposition: HOME/ ROUTINE Disposition Time: 13:54 Condition: IMPROVED Discharge Instructions (ExitCare): Dialysis Diet (DC), End Stage Kidney Disease (ED) Additional Instructions: Thank you for letting us take care of you today. Your provider was Dr. Vaughan. The emergency medical care you received today was directed at your acute symptoms. If you were prescribed any medication, please fill it and take as directed. It may take several days for your symptoms to resolve. Return to the Emergency Department if your symptoms worsen, do not improve, or if you have any other problems. Please contact your doctor or call one of the physicians/clinics you have been referred to that are listed on the Patient Visit Information form that is included in your discharge packet. Bring any paperwork you were given at discharge with you along with any medications you are taking to your follow up visit. Our treatment cannot replace ongoing medical care by a primary care provider (PCP) outside of the emergency department. Thank you for allowing the [facility] team to be part of your care today. Follow up with your doctor in 1-2 days for re-evaluation. Referrals: Young Taylor MD [Primary Care Provider] - Follow up with primary
[2016-10-11 18:47] VITALS: BP 169/78; PULSE 64; TEMP 98.5; O2SAT 99
== END 2016-10-11 18:47 | disposition home or self-care (01) ==
LOC: ED 13:33
DX: N18.6 End stage renal disease (principal); Z99.2 Dependence on renal dialysis
CPT/HCPCS: 99282; G0257

== ENCOUNTER 2016-10-13 12:20 | Observation (INO) | payer MEDICARE, MEDICAID ==
[2016-10-13 12:21] VITALS: BMI 40.4
[2016-10-13 12:34] VITALS: RESP 18
--- NOTE | 2016-10-13 13:30 | ED PDOC ---
Arrival/HPI - General Chief Complaint: Medical Clearance Time Seen by Provider: 10/13/16 12:28 Historian: Patient - History of Present Illness Narrative History of Present Illness (Text): 10/13/16 13:30 66 year old male, whose past medical history includes ESRD with hemodialysis on M,W,F, who presents to the emergency department for hemodialysis. Patient states he does not want to go to his usual hemodialysis center anymore. Patient denies any fever, chills, nausea, vomiting, diarrhea, abdominal pain, chest pain , shortness of breath or any other complaints. PMD: Dr. Taylor Analyst Food And Beverage: Dr. Juarez, Dr. Rodriguez Time/Duration: Other (today) Symptom Course: Unchanged Activities at Onset: Rest, Light Context: Home Past Medical History - Provider Review Nursing Documentation Reviewed: Yes - Infectious Disease Hx of Infectious Diseases: None - Tetanus Immunization Tetanus Immunization: Unknown - Cardiac Hx Cardiac Disorders: Yes Hx Hypertension: Yes Other/Comment: PVD - Pulmonary Hx Respiratory Disorders: Yes Hx Bronchitis: Yes Hx Pneumonia: Yes - Neurological Hx Paralysis: No - HEENT Hx HEENT Disorder: Yes Hx Blind: Yes (left eye blind) Hx Cataracts: Yes Hx Glaucoma: Yes Other/Comment: r eye blurrey vision after every dialysis - Renal Hx Dialysis: Yes Date of Last Dialysis Treatment: 10/06/16 Hx Renal Failure: Yes - Endocrine/Metabolic Hx Diabetes Mellitus Type 2: Yes - Hematological/Oncological Hx Blood Transfusions: No Hx Blood Transfusion Reaction: No - Integumentary Hx Dermatological Disorder: Yes Other/Comment: Bilateral dry feet, with right great toe amputation and right diabetic ulcer, dry skin ble and discolorations - Musculoskeletal/Rheumatological Hx Falls: No - Gastrointestinal Hx Gastrointestinal Disorders: No - Genitourinary/Gynecological Hx Genitourinary Disorders: Yes - Psychiatric Hx Emotional Abuse: No Hx Physical Abuse: No Hx Substance Use: No - Surgical History Hx Amputation: Yes (r great toe) Other/Comment: r leg bypass [facility], r leg angio unssucessful 08/05/14, pancho, colonoscopy, right av fistula - Anesthesia Hx Anesthesia: Yes Hx Anesthesia Reactions: No Hx Malignant Hyperthermia: No - Suicidal Assessment Feels Threatened In Home Enviroment: No Family/Social History - Physician Review Nursing Documentation Reviewed: Yes Family/Social History: Unknown Family HX Smoking Status: Never Smoked Hx Alcohol Use: No Hx Substance Use: No Hx Substance Use Treatment: No Allergies/Home Meds Allergies/Adverse Reactions: Allergies No Known Allergies Allergy (Verified 10/11/16 13:52) Home Medications: Home Meds Medication Instructions Recorded Confirmed Aspirin [Adult Low Dose Aspirin EC] 81 mg PO DAILY 07/23/15 10/13/16 Atorvastatin [Lipitor] 20 mg PO HS 07/23/15 10/13/16 Docusate Sodium [Col-Rite] 100 mg PO BID 07/23/15 10/13/16 Sevelamer [Renagel] 800 mg PO DAILY 02/18/16 10/13/16 Lactulose [Generlac] 30 ml PO Q12 PRN 07/07/16 10/13/16 Metoprolol Succinate 25 ng PO BID 07/07/16 10/13/16 Pilocarpine HCl [Isopto Carpine] 1 drop OD QID 07/07/16 10/13/16 amLODIPine [Norvasc] 10 mg PO DAILY 07/07/16 10/13/16 Dorzolamide 2%/Timolol 0.5% 1 drop OD BID 07/08/16 10/13/16 [Cosopt 2%-0.5% Opht] Review of Systems - Physician Review All systems were reviewed & negative as marked: Yes - Review of Systems Constitutional: Normal. absent: Fevers Eyes: Normal ENT: Normal Respiratory: Normal. absent: SOB, Cough Cardiovascular: Normal. absent: Chest Pain Gastrointestinal: Normal. absent: Abdominal Pain, Diarrhea, Nausea, Vomiting Genitourinary Male: Normal Musculoskeletal: Normal. absent: Back Pain, Neck Pain Skin: Normal Neurological: Normal. absent: Headache, Dizziness Endocrine: Normal Hemo/Lymphatic: Normal Psychiatric: Normal Physical Exam - Physical Exam Narrative Physical Exam (Text): Constitutional: No acute distress. Head: Normocephalic. Atraumatic. ENT: Moist mucous membranes. Neck: Supple. Cardiovascular: Regular rate. Chest: No tenderness. Respiratory: Clear to auscultation bilaterally. GI: Soft. Nontender. Nondistended. Back: No CVA tenderness. Musculoskeletal: No tenderness or swelling of extremities. Skin: No rash. Neurologic: Alert, no focal deficit. Vital Signs Reviewed: Yes Vital Signs Temp Pulse Resp BP Pulse Ox 10/13/16 12:30 99.2 F 74 18 164/73 H 99 Temperature: Afebrile Blood Pressure: Hypertensive Pulse: Regular Respiratory Rate: Normal Appearance: Positive for: Well-Appearing, Non-Toxic, Comfortable Pain Distress: None Mental Status: Positive for: Alert and Oriented X 3 Medical Decision Making ED Course and Treatment: 10/13/16 13:30 Impression: 66 year old male requesting hemodialysis. Plan: -- HD and disposition Prior Visits: Notes and results from previous visits were reviewed. 10/11/2016, pt was seen in the Emergency department requesting hemodialysis. Pt d/c home. Progress Notes: 10/13/16 13:30 Paged pt's director of women's services, Dr. Juarez. 10/13/16 13:[address] Rodriguez, covering for Dr. Juarez, who is aware of pt's situation. States she will be place dialysis orders. Pt will be placed on Emergency department observation. ED OBSERVATION Discharge: Yes Date of observation admission: 10/13/16 Time of observation admission: 13:53 - Observation admission statement Patient is being placed in observation because:: dialysis - Goals of Observation Goals of observation are:: complete dialysis - Progress Note Progress Note: 10/13/16 15:50 Pending completion of dialysis. 10/13/16 17:16 Pending dialysis. 10/13/16 17:23 Dialysis completed, no complications. Will discharge home. - Scribe Statement The provider has reviewed the documentation as recorded by the Scribe Hollie Holland All medical record entries made by the Scribe were at my direction and personally dictated by me. I have reviewed the chart and agree that the record accurately reflects my personal performance of the history, physical exam, medical decision making, and the department course for this patient. I have also personally directed, reviewed, and agree with the discharge instructions and disposition. Disposition/Present on Arrival - Present on Arrival Any Indicators Present on Arrival: No History of DVT/PE: No History of Uncontrolled Diabetes: No Urinary Catheter: No History of Decub. Ulcer: No History Surgical Site Infection Following: None - Disposition Have Diagnosis and Disposition been Completed?: Yes Diagnosis: ESRD (end stage renal disease) on dialysis Disposition: HOME/ ROUTINE Disposition Time: 17:23 Patient Plan: Discharge Condition: STABLE
[2016-10-13 18:52] VITALS: BP 157/74; PULSE 56; TEMP 98.1; O2SAT 100
== END 2016-10-13 17:24 | disposition home or self-care (01) ==
LOC: ED 12:20 → EROBSV 13:55
PROVIDERS: ADMIT Student in an Organized Health Care Education/Training Program; ATTEND Student in an Organized Health Care Education/Training Program
DX: N18.6 End stage renal disease (principal); Z99.2 Dependence on renal dialysis
CPT/HCPCS: 99282; G0257; G0378

== ENCOUNTER 2016-10-16 15:20 | Observation (INO) | payer MEDICARE, MEDICAID ==
[2016-10-16 15:20] VITALS: BMI 40.4
--- NOTE | 2016-10-16 15:43 | ED PDOC ---
Arrival/HPI - General Time Seen by Provider: 10/16/16 15:39 Historian: Patient - History of Present Illness Narrative History of Present Illness (Text): 10/16/16 15:43 A 66 year old male, whose past medical history includes ESRD with hemodialysis on M,W,F, presents to the emergency department for hemodialysis. He states he does not want to go to his usual place so he came here instead. Patient denies any chest pain, shortness of breath, dyspnea on exertion or any other complaints at this time. Past Medical History - Provider Review Nursing Documentation Reviewed: Yes - Infectious Disease Hx of Infectious Diseases: None - Tetanus Immunization Tetanus Immunization: Unknown - Cardiac Hx Cardiac Disorders: Yes Hx Hypertension: Yes Other/Comment: PVD - Pulmonary Hx Respiratory Disorders: Yes Hx Bronchitis: Yes Hx Pneumonia: Yes - Neurological Hx Paralysis: No - HEENT Hx HEENT Disorder: Yes Hx Blind: Yes (left eye blind) Hx Cataracts: Yes Hx Glaucoma: Yes Other/Comment: r eye blurrey vision after every dialysis - Renal Hx Dialysis: Yes Date of Last Dialysis Treatment: 10/06/16 Hx Renal Failure: Yes - Endocrine/Metabolic Hx Diabetes Mellitus Type 2: Yes - Hematological/Oncological Hx Blood Transfusions: No Hx Blood Transfusion Reaction: No - Integumentary Hx Dermatological Disorder: Yes Other/Comment: Bilateral dry feet, with right great toe amputation and right diabetic ulcer, dry skin ble and discolorations - Musculoskeletal/Rheumatological Hx Falls: No - Gastrointestinal Hx Gastrointestinal Disorders: No - Genitourinary/Gynecological Hx Genitourinary Disorders: Yes - Psychiatric Hx Emotional Abuse: No Hx Physical Abuse: No Hx Substance Use: No - Surgical History Hx Amputation: Yes (r great toe) Other/Comment: r leg bypass [facility], r leg angio unssucessful 08/05/14, pancho, colonoscopy, right av fistula - Anesthesia Hx Anesthesia: Yes Hx Anesthesia Reactions: No Hx Malignant Hyperthermia: No - Suicidal Assessment Feels Threatened In Home Enviroment: No Family/Social History - Physician Review Nursing Documentation Reviewed: Yes Family/Social History: Unknown Family HX Smoking Status: Never Smoked Hx Alcohol Use: No Hx Substance Use: No Hx Substance Use Treatment: No Allergies/Home Meds Allergies/Adverse Reactions: Allergies No Known Allergies Allergy (Verified 10/11/16 13:52) Home Medications: Home Meds Medication Instructions Recorded Confirmed Aspirin [Adult Low Dose Aspirin EC] 81 mg PO DAILY 07/23/15 10/13/16 Atorvastatin [Lipitor] 20 mg PO HS 07/23/15 10/13/16 Docusate Sodium [Col-Rite] 100 mg PO BID 07/23/15 10/13/16 Sevelamer [Renagel] 800 mg PO DAILY 02/18/16 10/13/16 Lactulose [Generlac] 30 ml PO Q12 PRN 07/07/16 10/13/16 Metoprolol Succinate 25 ng PO BID 07/07/16 10/13/16 Pilocarpine HCl [Isopto Carpine] 1 drop OD QID 07/07/16 10/13/16 amLODIPine [Norvasc] 10 mg PO DAILY 07/07/16 10/13/16 Dorzolamide 2%/Timolol 0.5% 1 drop OD BID 07/08/16 10/13/16 [Cosopt 2%-0.5% Opht] Physical Exam - Physical Exam Narrative Physical Exam (Text): - Review of Systems Constitutional: Needs hemodialysis absent: Fatigue, Weight Change, Fevers Eyes: Normal ENT: denies sore throat, denies tristhmus Respiratory: Normal. absent: SOB, Cough, Sputum Cardiovascular: absent: Chest Pain, Palpitations, Syncope Gastrointestinal: Normal. absent: Abdominal Pain, Diarrhea, Nausea, Vomiting Genitourinary: Normal. absent: Dysuria, Frequency, Hematuria Musculoskeletal: Normal. absent: Arthralgias, Back Pain, Neck Pain Skin: no rashes, no erythema Neurological: absent: Focal Weakness Endocrine: Normal Hemo/Lymphatic: Normal Psychiatric: No suicidal or homicidal ideations Physical exam Patient appears age appropriate in no distress, speaking full sentences without difficulty - Systems Exam Head: Present: Atraumatic, Normocephalic Pupils: Present: PERRL Extroacular Muscles: Present: EOMI Conjunctiva: Present: Normal Mouth: Present: Moist Mucous Membranes Neck: Present: Normal Range of Motion. No: MIDLINE TENDERNESS, Paraspinal Tenderness Respiratory/Chest: Present: Clear to Auscultation, Good Air Exchange. No: Respiratory Distress, Accessory Muscle Use, Tachypneic Cardiovascular: Present: Regular Rate and Rhythm, Normal S1, S2, Peripheal Pulses Present. No: Murmurs Abdomen: Present: Normal Bowel Sounds. No: Tenderness, Distention, Peritoneal Signs, Rebound, Guarding Back: Present: Normal Inspection. No: Midline Tenderness, Paraspinal Tenderness Upper Extremity: Present: Normal Inspection. No: Cyanosis, Edema Lower Extremity: Present: Normal Inspection. No: Edema Neurological: Present: GCS=15, Speech Normal, cranial nerves II through XII fully intact with no cerebellar abnormality, neurosensory fully intact. No focal neurological deficits. Skin: Present: Warm, Dry, Normal Color. No: Rashes Lymphatic: Present: OX3, NI, NC Psychiatric: Present: Alert, Oriented x 3, Normal Insight, Normal Concentration Vital Signs Reviewed: Yes Vital Signs Temp Pulse Resp BP Pulse Ox 10/16/16 15:39 97.8 F 77 16 177/81 H 97 Temperature: Afebrile Blood Pressure: Hypertensive Pulse: Regular Respiratory Rate: Normal Appearance: Positive for: Well-Appearing, Non-Toxic, Comfortable Pain Distress: None Mental Status: Positive for: Alert and Oriented X 3 Medical Decision Making ED Course and Treatment: 10/16/16 15:43 Impression: A 66 year old male comes in for hemodialysis. Physical examination is unremarkable. Differential Diagnosis included but are not limited to: ESRD Plan: -- dialysis -- Reassess and disposition ED OBSERVATION Discharge: Yes Date of observation admission: 10/16/16 Time of observation admission: 15:43 - Observation admission statement Patient is being placed in observation because:: need for hemodialysis - Goals of Observation Goals of observation are:: dialysis patient - Progress Note Progress Note: 10/16/16 21:15 pt back from HD, denies complaints. states he feels comfortable being dc'd home with outpatient f/u - Scribe Statement The provider has reviewed the documentation as recorded by the Alicia Bean Provider Scribe Attestation: All medical record entries made by the Alicia were at my direction and personally dictated by me. I have reviewed the chart and agree that the record accurately reflects my personal performance of the history, physical exam, medical decision making, and the department course for this patient. I have also personally directed, reviewed, and agree with the discharge instructions and disposition. Disposition/Present on Arrival - Present on Arrival Any Indicators Present on Arrival: No History of DVT/PE: No History of Uncontrolled Diabetes: No Urinary Catheter: No History Surgical Site Infection Following: None - Disposition Have Diagnosis and Disposition been Completed?: Yes Diagnosis: ESRD (end stage renal disease) Disposition: HOME/ ROUTINE Disposition Time: 15:43 Patient Plan: Discharge Condition: GOOD
[2016-10-16 15:44] VITALS: TEMP 97.8
[2016-10-16 21:46] VITALS: BP 158/73; PULSE 75; RESP 18; O2SAT 99
== END 2016-10-16 21:16 | disposition home or self-care (01) ==
LOC: ED 15:20 → EROBSV 16:04
PROVIDERS: ADMIT Emergency Medicine; ATTEND Emergency Medicine
DX: I12.0 Hypertensive chronic kidney disease with stage 5 chronic kidney disease or end stage renal disease (principal); N18.6 End stage renal disease; Z99.2 Dependence on renal dialysis; E11.9 Type 2 diabetes mellitus without complications; Z89.411 Acquired absence of right great toe
CPT/HCPCS: 99282; G0378

== ENCOUNTER 2017-01-10 18:08 | Observation (INO) | payer MEDICARE, MEDICAID ==
[2017-01-10 18:08] VITALS: BMI 27.6
[2017-01-10 18:13] VITALS: O2SAT 100
--- NOTE | 2017-01-10 18:33 | ED PDOC ---
Arrival/HPI - General Chief Complaint: Palpitations Time Seen by Provider: 01/10/17 18:09 Historian: Patient - History of Present Illness Narrative History of Present Illness (Text): 01/10/17 18:27 A 66 year old male, whose past medical history includes HTN, DM, PVD, and ESRD on hemodialysis (M,W,F), was sent to the ER for tachycardia. Patient came in today for dialysis and during the session before it was complete, it was noticed patient's heart rate was about 140. Patient denies of any pain, fever, nausea, vomiting, abdominal pain, chest pain, shortness of breath, cough, swelling of lower extremities, or any other complaints. PMD: Dr. Taylor Past Medical History - Provider Review Nursing Documentation Reviewed: Yes - Infectious Disease Hx of Infectious Diseases: None - Tetanus Immunization Tetanus Immunization: Unknown - Cardiac Hx Cardiac Disorders: Yes Hx Hypertension: Yes Other/Comment: PVD - Pulmonary Hx Respiratory Disorders: Yes Hx Bronchitis: Yes Hx Pneumonia: Yes - Neurological Hx Neurological Disorder: No Hx Paralysis: No - HEENT Hx HEENT Disorder: Yes Hx Blind: Yes (left eye blind) Hx Cataracts: Yes Hx Glaucoma: Yes Other/Comment: r eye blurrey vision after every dialysis - Renal Hx Renal Disorder: Yes Hx Dialysis: Yes Date of Last Dialysis Treatment: 01/10/17 Hx Renal Failure: Yes - Endocrine/Metabolic Hx Endocrine Disorders: Yes Hx Diabetes Mellitus Type 2: Yes - Hematological/Oncological Hx Blood Disorders: No Hx Blood Transfusions: No Hx Blood Transfusion Reaction: No - Integumentary Hx Dermatological Disorder: Yes - Musculoskeletal/Rheumatological Hx Musculoskeletal Disorders: No Hx Falls: No - Gastrointestinal Hx Gastrointestinal Disorders: No - Genitourinary/Gynecological Hx Genitourinary Disorders: Yes - Psychiatric Hx Psychophysiologic Disorder: No Hx Emotional Abuse: No Hx Physical Abuse: No Hx Substance Use: No - Surgical History Hx Amputation: Yes (r great toe) Other/Comment: r leg bypass [facility]uss, r leg angio unssucessful 08/05/14, pancho, colonoscopy, right av fistula - Anesthesia Hx Anesthesia: Yes Hx Anesthesia Reactions: No Hx Malignant Hyperthermia: No - Suicidal Assessment Feels Threatened In Home Enviroment: No Family/Social History - Physician Review Nursing Documentation Reviewed: Yes Family/Social History: No Known Family HX Smoking Status: Never Smoked Hx Alcohol Use: No Hx Substance Use: No Hx Substance Use Treatment: No Allergies/Home Meds Allergies/Adverse Reactions: Allergies No Known Allergies Allergy (Verified 01/10/17 18:13) Home Medications: Home Meds Medication Instructions Recorded Confirmed Unobtainable 01/10/17 01/10/17 Review of Systems - Physician Review All systems were reviewed & negative as marked: Yes - Review of Systems Constitutional: absent: Fevers Respiratory: absent: SOB, Cough Cardiovascular: Other (tachycardia). absent: Chest Pain Gastrointestinal: absent: Abdominal Pain, Nausea, Vomiting Musculoskeletal: absent: Other (no swelling to lower extremities) Neurological: absent: Headache Physical Exam Vital Signs Reviewed: Yes Vital Signs Temp Pulse Resp BP Pulse Ox 01/10/17 19:40 75 16 132/74 100 01/10/17 18:12 98.4 F 140 H 16 147/93 H 100 Temperature: Afebrile Blood Pressure: Normal Pulse: Tachycardic Respiratory Rate: Normal Appearance: Positive for: Well-Appearing Pain Distress: None Mental Status: Positive for: Alert and Oriented X 3 - Systems Exam Head: Present: Atraumatic, Normocephalic Pupils: Present: PERRL Conjunctiva: Present: Normal Mouth: Present: Moist Mucous Membranes Pharnyx: Present: Normal. No: ERYTHEMA, EXUDATE Neck: Present: Normal Range of Motion Respiratory/Chest: Present: Clear to Auscultation, Good Air Exchange. No: Respiratory Distress, Accessory Muscle Use Cardiovascular: Present: Normal S1, S2, Tachycardic Abdomen: Present: Normal Bowel Sounds. No: Tenderness, Distention, Peritoneal Signs Back: Present: Normal Inspection Upper Extremity: Present: Other (right forearm AV fistula) Lower Extremity: Present: Normal Inspection. No: Edema Neurological: Present: GCS=15, CN II-XII Intact, Speech Normal Skin: Present: Warm, Dry, Normal Color. No: Rashes Psychiatric: Present: Alert, Oriented x 3, Normal Insight, Normal Concentration Medical Decision Making ED Course and Treatment: 01/10/17 18:32 Impression: 66 year old male with tachycardia. Physical exam shows patient is tachycardic. Plan: -- EKG -- Chest X-ray -- Labs -- Adenosine -- Reassess and disposition Prior Visits: Notes and results from previous visits were reviewed. Patient was last seen in the emergency department on 10/16/2016 for hemodialysis. Patient has gemodialysis done, and was discharged home with outpatient follow-up. Progress Notes: EKG: regular wide complex tachycardia @ 138 with left axis deviation with poor R wave progression with LVH; no new ST/T changes c/w 09/01/16 EKG #2: atrial fibrillation @ 108 (after adenosine) 01/10/17 21:01 Patient with noted tachycardia that is regular - SVT vs atrial flutter - patient was given 6 mg of adenosine revealing rapid atrial flutter; he was in a rate of about 120 for a while, and inital plan was to start cardizem, but he did spontaneously resolve. By old charts, patient does have a history of rapid atrial fibrillation but is on no agents for rate control. Labs with indeterminate troponin, which will need trending - will be maintained on observation on tele and obtain cardiology consult. Discussed with Dr. Kapoor. - Lab Interpretations Lab Results: 01/10/17 19:00 01/10/17 20:18 Lab Results 01/10/17 20:18: Sodium 140, Potassium 4.7, Chloride 101, Carbon Dioxide 30, Anion Gap 14, BUN 24 H, Creatinine 6.1 H, Est GFR ( Amer) 11, Est GFR ( Non-Af Amer) 9, Random Glucose 107, Calcium 8.8, Magnesium 2.0, Total Bilirubin 0.4, AST 18, ALT < 6 L, Alkaline Phosphatase 78, Lactate Dehydrogenase 323 L, Total Creatine Kinase 59, Troponin I 0.05 D, Total Protein 6.8, Albumin 3.7, Globulin 3.0, Albumin/Globulin Ratio 1.2 01/10/17 20:18: PT 10.9, INR 1.01, APTT 26.8 01/10/17 19:00: WBC 4.1 L, RBC 3.42 L, Hgb 11.0 L, Hct 33.6 L, MCV 98.2, MCH 32.2, MCHC 32.7, RDW 15.6 H, Plt Count 234, MPV 10.4, Gran % 56.2, Lymph % (Auto ) 22.0, [place]renac % (Auto) 5.6, Eos % (Auto) 14.3 H, Baso % (Auto) 1.9, Gran # 2.33, Lymph # 0.9 L, Arenac # 0.2, Eos # 0.6, Baso # 0.08 I have reviewed the lab results: Yes - RAD Interpretation Radiology Orders: 01/10/17 18:28 CHEST PORTABLE [RAD] Stat - Medication Orders Current Medication Orders: diltiaZEM IVPB 100mg in NS (Cardizem 100mg In Ns) 100 mls @ 5 mls/hr IV .Q20H PRN; Protocol; 5 MG/HR PRN Reason: TITRATE PER MD ORDER Discontinued Medications Adenosine (Adenosine 6 Mg/2 Ml Inj) 6 mg IVP STAT STA Stop: 01/10/17 18:29 Last Admin: 01/10/17 19:15 Dose: 6 mg IVP Administration Document 01/10/17 19:15 EKKAUR (Rec: 01/10/17 19:39 EKKAUR [id number]) Charges for Administration # of IVP Administrations 1 Diltiazem HCl (Cardizem) 5 mg IVP STAT STA Stop: 01/10/17 19:25 - Scribe Statement The provider has reviewed the documentation as recorded by the Alicia Kohler Provider Scribe Attestation: All medical record entries made by the Scribe were at my direction and personally dictated by me. I have reviewed the chart and agree that the record accurately reflects my personal performance of the history, physical exam, medical decision making, and the department course for this patient. I have also personally directed, reviewed, and agree with the discharge instructions and disposition. Disposition/Present on Arrival - Present on Arrival Any Indicators Present on Arrival: No History of DVT/PE: No History of Uncontrolled Diabetes: No Urinary Catheter: No History of Decub. Ulcer: No History Surgical Site Infection Following: None - Disposition Have Diagnosis and Disposition been Completed?: Yes Diagnosis: Atrial flutter with rapid ventricular response Disposition: HOSPITALIZED Disposition Time: 20:55 Patient Plan: Observation, Telemetry Condition: FAIR Referrals: Young Taylor MD [Primary Care Provider] - Follow up with primary Forms: ooma (Icelandic)
[2017-01-10] MEDS ORDERED: diltiaZEM IVPB 100mg in NS 100 ML IV PRN (19:24)
[2017-01-10 19:30] LABS: BASO # 0.08 K/mm3 (0.0-2.0); BASO % 1.9 % (0.0-3.0); EOS # 0.6 (0.0-0.7); EOS % 14.3 % (1.5-5.0); GRAN # 2.33 (1.4-6.5); GRAN % 56.2 % (50.0-68.0); HEMATOCRIT 33.6 % (42.0-52.0); LYMPH # 0.9 (1.2-3.4); MEAN CELL VOLUME 98.2 fl (80.0-105.0); MEAN CORPUSCULAR HEMOGLOBIN 32.2 pg (25.0-35.0); MEAN CORPUSCULAR HGB CONC 32.7 g/dl (31.0-37.0); MEAN PLATELET VOLUME 10.4 fl (7.0-11.0); MONO # 0.2 (0.1-0.6); MONO % 5.6 % (1.0-6.0); RED CELL DISTRIBUTION WIDTH 15.6 % (11.5-14.5); WHITE BLOOD COUNT 4.1 10^3/ul (4.5-11.0)
[2017-01-10 20:36] LABS: INR 1.01 (0.93-1.08); PARTIAL THROMBOPLASTIN TIME 26.8 Seconds (23.7-30.8)
[2017-01-10 20:37] LABS: ALB/GLOB RATIO 1.2 (1.1-1.8); ALKALINE PHOSPHATASE 78 U/L (38-126); ALT/SGPT < 6 U/L (7-56); AST/SGOT 18 U/L (17-59); BILIRUBIN,TOTAL 0.4 mg/dL (0.2-1.3); BLOOD UREA NITROGEN 24 mg/dL (7-21); CALCIUM 8.8 mg/dL (8.4-10.5); CARBON DIOXIDE 30 mmol/L (21-33); CHLORIDE 101 mmol/L (98-107); GFR AFRICAN-AMERICAN 11; GLUCOSE,RANDOM 107 mg/dL (70-110); POTASSIUM 4.7 mmol/L (3.6-5.0); SODIUM 140 mmol/L (132-148); TOTAL PROTEIN 6.8 g/dL (5.8-8.3)
[2017-01-10 20:48] LABS: TROPONIN I 0.05 ng/mL
[2017-01-10] MEDS: Insulin Reg-MEDIUM-Coverage SC SCH (23:40)
[2017-01-11 06:50] LABS: TROPONIN I 0.08 ng/mL
[2017-01-11] MEDS: Insulin Reg-MEDIUM-Coverage SC SCH ×2 (07:43→11:59)
--- NOTE | 2017-01-11 08:24 | RAD ---
HISTORY: tachycardia COMPARISON: 09/01/2016. FINDINGS: LUNGS: The lungs are well inflated and clear. PLEURA: No significant pleural effusion identified, no pneumothorax apparent. CARDIOVASCULAR: Normal. OSSEOUS STRUCTURES: No significant abnormalities. VISUALIZED UPPER ABDOMEN: Normal. OTHER FINDINGS: None. IMPRESSION: No active pulmonary disease.
[2017-01-11] MEDS ORDERED: GLIPIZIDE 5 MG PO SCH (10:00)
[2017-01-11] MEDS ORDERED: ATORVASTATIN 20 MG PO SCH (10:00)
[2017-01-11] MEDS ORDERED: ASPIRIN 81 MG PO SCH (10:00)
[2017-01-11] MEDS ORDERED: BRIMONIDINE 0.15% OD SCH ×2 (10:00)
[2017-01-11] MEDS ORDERED: CLOPIDOGREL 75 MG PO SCH (10:00)
[2017-01-11 12:27] VITALS: BP 154/81; PULSE 63; RESP 20; TEMP 98
--- NOTE | 2017-01-11 13:50 | CP.PCM.HP ---
<Olivia Garcia - Last Filed: 01/11/17 13:47> History of Present Illness - History of Present Illness History of Present Illness: PGY-2 H&P for Dr. Kapoor 66 yo male, with past medical history of HTN, DM, PVD, and ESRD on hemodialysis (M,W,F), presnted for tachycardia. Patient states that during his normally scheduled dialysis he was found to have elevated heart rate, about 140. Patient states that he has had previous episode during dialysis few years ago. It resolved spontaneously. Patient has history of non adherence. Patient denied any palpations, dizziness, chest pain or sob at the time. He denies any pain, fever, nausea, vomiting, abdominal pain, cough, swelling of lower extremities, or any other complaints. In ED patent was given adenosine and started on cardizem. Overnight patient return to normal sinus rhythm. PMH: HTN, DMII, PVD, and ESRD on hemodialysis (M,W,F), glaucoma, diabetic neuropathy, secondary hypoparathyriodism PSH: right leg bypass, right AV fistula, right great toe amputation social hx: denies smoking, etoh use, illicit drug use family hx: denies allergy: NKDA home meds: lopressor, asa, renal-carolina, glipizide, cilostazol, renvela, clopidogrel, atrovastatin, brimonidine Present on Admission - Present on Admission Any Indicators Present on Admission: No Review of Systems - Constitutional Constitutional: absent: Chills, Fatigue, Fever, Headache - EENT Eyes: absent: Change in Vision Nose/Mouth/Throat: absent: Nasal Congestion, Sore Throat - Cardiovascular Cardiovascular: absent: Chest Pain, Diaphoresis, Leg Edema, Palpitations, Pedal Edema - Respiratory Respiratory: absent: Cough, Dyspnea, Hemoptysis, Wheezing - Gastrointestinal Gastrointestinal: absent: Abdominal Pain, Constipation, Cramping, Diarrhea, Nausea, Vomiting - Genitourinary Genitourinary: absent: Difficulty Urinating, Dysuria, Hematuria Additional comments: patient is anuria - Musculoskeletal Musculoskeletal: Arthralgias. absent: Back Pain, Muscle Weakness, Neck Pain, Numbness, Tingling - Integumentary Integumentary: absent: Pruritus, Rash, Skin Ulcer, Sores, Striae - Neurological Neurological: Numbness. absent: Dizziness, Headaches, Tingling, Weakness - Hematologic/Lymphatic Hematologic: absent: Easy Bleeding, Easy Bruising Past Patient History - Infectious Disease Hx of Infectious Diseases: None - Tetanus Immunizations Tetanus Immunization: Unknown - Past Medical History & Family History Past Medical History?: Yes - Past Social History Smoking Status: Never Smoked - CARDIAC Hx Cardiac Disorders: Yes Hx Hypertension: Yes Other/Comment: PVD - PULMONARY Hx Respiratory Disorders: Yes Hx Bronchitis: Yes Hx Pneumonia: Yes - NEUROLOGICAL Hx Neurological Disorder: No - HEENT Hx HEENT Problems: Yes Hx Blind: Yes (left eye blind) Hx Cataracts: Yes Hx Glaucoma: Yes Other/Comment: r eye blurrey vision after every dialysis - RENAL Hx Chronic Kidney Disease: Yes Hx Dialysis: Yes Date of Last Dialysis Treatment: 01/10/17 Hx Renal Failure: Yes - ENDOCRINE/METABOLIC Hx Endocrine Disorders: Yes Hx Diabetes Mellitus Type 2: Yes - HEMATOLOGICAL/ONCOLOGICAL Hx Blood Disorders: No - INTEGUMENTARY Hx Dermatological Problems: Yes - MUSCULOSKELETAL/RHEUMATOLOGICAL Hx Musculoskeletal Disorders: No Hx Falls: No - GASTROINTESTINAL Hx Gastrointestinal Disorders: No - GENITOURINARY/GYNECOLOGICAL Hx Genitourinary Disorders: Yes - PSYCHIATRIC Hx Psychophysiologic Disorder: No Hx Emotional Abuse: No Hx Physical Abuse: No - SURGICAL HISTORY Hx Amputation: Yes (r great toe) Other/Comment: r leg bypass [facility], r leg angio unssucessful 08/05/14, pancho, colonoscopy, right av fistula - ANESTHESIA Hx Anesthesia: Yes Hx Anesthesia Reactions: No Hx Malignant Hyperthermia: No Meds Allergies/Adverse Reactions: Allergies Allergy/AdvReac Type Severity Reaction Status Date / Time No Known Allergies Allergy Verified 01/10/17 18:13 Physical Exam - Constitutional Appears: Well, No Acute Distress - Head Exam Head Exam: ATRAUMATIC, NORMAL INSPECTION, NORMOCEPHALIC - Eye Exam Eye Exam: EOMI, Normal appearance - ENT Exam ENT Exam: Mucous Membranes Moist - Respiratory Exam Respiratory Exam: Clear to Auscultation Bilateral, NORMAL BREATHING PATTERN. absent: Decreased Breath Sounds, Rales, Rhonchi, Wheezes, Respiratory Distress - Cardiovascular Exam Cardiovascular Exam: REGULAR RHYTHM, +S1, +S2. absent: Tachycardia, Diastolic murmur, Systolic Murmur - GI/Abdominal Exam GI & Abdominal Exam: Normal Bowel Sounds, Soft. absent: Distended, Firm, Guarding, Tenderness - Extremities Exam Extremities exam: Positive for: normal inspection. Negative for: pedal edema - Neurological Exam Neurological exam: Alert, Oriented x3 - Skin Skin Exam: Dry, Intact, Normal Color, Warm Results - Vital Signs Recent Vital Signs: Last Vital Signs Temp 98 F 01/11/17 12:00 Pulse 63 01/11/17 12:00 Resp 20 01/11/17 12:00 BP 154/81 H 01/11/17 12:00 Pulse Ox 100 01/11/17 06:00 - Labs Result Diagrams: 01/10/17 19:00 01/10/17 20:18 Labs: Laboratory Results - last 24 hr 01/10/17 01/11/17 01/11/17 23:42 06:00 07:33 POC Glucose (mg/dL) 137 H 58 L Lactate Dehydrogenase 320 L Total Creatine Kinase 55 Troponin I 0.08 D 01/11/17 01/11/17 08:06 11:32 POC Glucose (mg/dL) 88 79 Lactate Dehydrogenase Total Creatine Kinase Troponin I Assessment & Plan - Assessment and Plan (Free Text) Assessment: 66 yo male, with past medical history of HTN, DM, PVD, and ESRD on hemodialysis (M,W,F), presented for tachycardia secondary to a. fib Plan: 1. a. fib - returned to normal sinus overnight - stopped Cardizem - cont Lopressor - TSH low, will order T3, T4 - cardiology consulted 2. ESRD ON HD (m,w,f) - HD yesterday - will continued scheduled HD 3. HTN - cont Lopressor - cont to monitor 4. DMII - cont home med glipizide - patient should be switched to insulin due to ESRD however patient does not which to do so at this time 5. glaucoma - cont home meds eye drop brimonidine 6. HLD - cont lipitor <Chris Kapoor S - Last Filed: 01/11/17 20:56> Results - Vital Signs Recent Vital Signs: Last Vital Signs Temp 98 F 01/11/17 12:00 Pulse 63 01/11/17 12:00 Resp 20 01/11/17 12:00 BP 154/81 H 01/11/17 12:00 Pulse Ox 100 01/11/17 06:00 - Labs Result Diagrams: 01/10/17 19:00 01/10/17 20:18 Labs: Laboratory Results - last 24 hr 01/10/17 01/11/17 01/11/17 23:42 06:00 07:33 POC Glucose (mg/dL) 137 H 58 L Lactate Dehydrogenase 320 L Total Creatine Kinase 55 Troponin I 0.08 D Thyroxine (T4) Total T3 01/11/17 01/11/17 01/11/17 08:06 11:32 14:15 POC Glucose (mg/dL) 88 79 Lactate Dehydrogenase Total Creatine Kinase Troponin I Thyroxine (T4) 5.7 Total T3 0.95 L Assessment & Plan - Assessment and Plan (Free Text) Plan: Pt seen and examined. Agree with above note and plan of medical records clerk. Meds and labs have been reviewed. Pt now in sinus rhythm. He is not a good candidate for anti-coagulation due to non-adhernence. Cardiology consult. Will D.C today.
[2017-01-11 15:00] LABS: T4 5.7 ug/dL (5.5-11.0)
[2017-01-11 15:14] LABS: T3 0.95 ng/mL (0.97-1.69)
--- NOTE | 2017-01-11 16:07 | CON ---
DATE: 01/11/2017 INDICATIONS: Paroxysmal atrial fibrillation. HISTORY OF PRESENT ILLNESS: This is a 66-year-old man known to our practice admitted when he was found to have a rapid heart rate at hemodialysis yesterday. He was found to have atrial fibrillation with rapid ventricular response and admitted to telemetry where, during the night, he converted to sinus rhythm. He is currently in sinus rhythm and feels well this morning. There was no chest pain, shortness of breath, palpitations, orthopnea, PND, syncope, presyncope, lightheadedness or dizziness. There was no fever, chills, cough, sputum production, or hemoptysis. There was no abdominal pain, nausea, vomiting, diarrhea, constipation or melena. PAST MEDICAL HISTORY: His past medical his complex. He has chronic kidney disease and undergoes hemodialysis 3 times per week. He is a diabetic with peripheral vascular disease, status post peripheral vascular bypass and amputation of a toe of the right foot. He has a history of hypertension, TIA, anemia, secondary hyperparathyroidism. He has blindness of left eye, diminished vision in the right eye. He has unsteady gait and ambulates with a walker. He has had atrial fibrillation in the past and it has been decided at that time not to give him chronic anticoagulation because of the risks were high and he was predominantly in sinus rhythm. There is no history of rheumatic fever, myocardial infarction, angina, or gout. MEDICATIONS: At the time of admission were aspirin, Lipitor, Pletal, Plavix, glipizide, Luciana-Brissa, and Renvela. ALLERGIES: THERE ARE NO MEDICATION ALLERGIES REPORTED. FAMILY HISTORY: Noncontributory. SOCIAL HISTORY: He lives at the [facility]. He is not very ambulatory. He does not smoke. He does not drink alcohol. REVIEW OF SYSTEMS: A 10-point review of system otherwise unremarkable except as noted above. PHYSICAL EXAMINATION: GENERAL: He is a well-developed male sitting on his bed in telemetry in no acute distress. VITAL SIGNS: Notable for sinus rhythm at 71 beats per minute. He is afebrile. Blood pressure 151/87, respirations are 18 to 20, O2 sat 100% on room air. HEENT: Reveals no neck vein distention, thyromegaly or carotid bruits. Mucous membrane are moist. Conjunctivae pink. NECK: Supple. LUNGS: Lung richards clear throughout. HEART: Reveal a regular rhythm. Normal first and second heart sound. Soft systolic murmur along the left sternal border. ABDOMEN: Soft, bowel sounds present. No mass or organomegaly, tenderness, rebound, guarding, CVA tenderness or palpable abdominal aortic aneurysm. EXTREMITIES: Reveal no cyanosis, clubbing or edema. NEUROLOGIC: Awake, alert and oriented. Visual impairment is noted. PSYCHIATRIC: Normal as to mood and affect. SKIN: Warm and dry. No rash or cellulitis. LABORATORY AND IMAGING: Chest x-ray reveals no active pulmonary disease. EKG revealed atrial fibrillation with rapid ventricular response, intraventricular condition delay, ST-T wave changes. White count 4,100, hemoglobin 11, hematocrit 33.6, platelet count 234,000. PT/INR, PTT unremarkable. Electrolytes unremarkable. BUN 24. Creatinine 6.1, magnesium 2.0. LFTs unremarkable, 2 CK's and 2 troponins are unremarkable. TSH is 0.38. IMPRESSION: José Luis Flynn is a 66-year-old man with chronic kidney disease, hemodialysis, peripheral vascular disease, blindness, hypertension, transient ischemic attack, glaucoma, anemia, secondary hypoparathyroidism and known paroxysmal atrial fibrillation, who is admitted after he was found to have atrial fibrillation during dialysis yesterday. He is converted to sinus rhythm. There is no evidence of acute myocardial infarction. There has been no chest pain. PLAN: I have discussed this case with Dr. Sandhu. We will resume metoprolol in hopes of keeping him in sinus rhythm. We will continue aspirin and Plavix at this time. He seems to be at high risk for terminal supervisor anticoagulation with warfarin due to blindness and instability of gait. If paroxysmal atrial fibrillation continues to be a problem, we may reconsider usp anticoagulation for prevention of stroke and peripheral embolization. He will be evaluated by renal, hemodialysis will continue, possible early discharge for later today with outpatient followup. Marshall Sheppard MD
--- NOTE | 2017-01-11 21:43 | CARD ---
APPROVED REPORT EKG Measurement Heart [id number] VA 120P [id number] <Conclusion> Sinus tachycardia Left axis deviation Left ventricular hypertrophy with QRS widening and repolarization abnormality Septal infarct, age undetermined Abnormal ECG
== END 2017-01-11 13:43 | disposition home or self-care (01) ==
LOC: ED 18:08 → ERH 20:55 → 2RNO 23:32
PROVIDERS: ADMIT Internal Medicine Nephrology; ATTEND Internal Medicine Nephrology
DX: I48.0 Paroxysmal atrial fibrillation (principal); N18.6 End stage renal disease; Z99.2 Dependence on renal dialysis; E11.22 Type 2 diabetes mellitus with diabetic chronic kidney disease; I12.0 Hypertensive chronic kidney disease with stage 5 chronic kidney disease or end stage renal disease; E11.51 Type 2 diabetes mellitus with diabetic peripheral angiopathy without gangrene; E11.40 Type 2 diabetes mellitus with diabetic neuropathy, unspecified; N25.81 Secondary hyperparathyroidism of renal origin; D64.9 Anemia, unspecified; E78.5 Hyperlipidemia, unspecified; H54.62 Unqualified visual loss, left eye, normal vision right eye; R26.81 Unsteadiness on feet; H40.9 Unspecified glaucoma; Z86.73 Personal history of transient ischemic attack (TIA), and cerebral infarction without residual deficits; Z89.411 Acquired absence of right great toe
CPT/HCPCS: 36415; 71010; 80053; 82550; 82948; 83615; 83735; 84436; 84443; 84480; 84484; 85025; 85610; 85730; 93005; 96374; 99285; G0378; J0153